=== PATIENT | female | born 1965 | race African-American/Black ===

== ENCOUNTER → 2017-03-18 | Outpatient (CLI) | payer OTHER ==
[~2017-03-18] MED LIST: ALBU6.7H INH; ASPI-110 PO; FLUC200T2 PO; FLUT1SPR9; IBUP800T23 PO; LEXA20TA PO; MULTTAB67 PO; NYST10007 TOPICAL; PRIL20TA2 PO
[2017-03-18 09:59] LABS: AUTOMATED NEUTROPHIL # 3.9 TH/MM3 (1.8-7.7); BASOPHIL # 0.1 TH/MM3 (0-0.2); BASOPHIL % 1.1 % (0.0-2.0); EOSINOPHIL # 0.2 TH/MM3 (0-0.4); EOSINOPHIL % 3.1 % (0.0-4.0); HEMATOCRIT 38.8 % (35.0-46.0); HEMO FLAGS DIFF FINAL; LYMPH % 31.1 % (9.0-44.0); LYMPHOCYTE # 2.3 TH/MM3 (1.0-4.8); MEAN CELL VOLUME 85.6 FL (80.0-100.0); MEAN CORPUSCULAR HGB CONC 32.7 % (32.0-36.0); MONO % 11.8 % (0.0-8.0); NEUT % 52.9 % (16.0-70.0); PLATELET COUNT 229 TH/MM3 (150-450); RED BLOOD COUNT 4.54 MIL/MM3 (4.00-5.30); RED CELL DISTRIBUTION WIDTH 14.8 % (11.6-17.2); WHITE BLOOD COUNT 7.3 TH/MM3 (4.0-11.0)
[2017-03-18 10:39] LABS: ALKALINE PHOSPHATASE 116 U/L (45-117); ALT (GPT) 15 U/L (10-53); ANION GAP 7 MEQ/L (5-15); AST (GOT) 10 U/L (15-37); BLOOD UREA NITROGEN 11 MG/DL (7-18); CHLORIDE 101 MEQ/L (98-107); GLOMERULAR FILTRATION RATE 97 ML/MIN (>89); GLUCOSE,FASTING 98 MG/DL (74-99); HDL CHOLESTEROL 51.4 MG/DL (40.0-60.0); LDL CHOLESTEROL 70 MG/DL (0-99); POTASSIUM 4.2 MEQ/L (3.5-5.1); SODIUM (NA) 139 MEQ/L (136-145); TOTAL BILIRUBIN ADULT 0.5 MG/DL (0.2-1.0)
[2017-03-18 10:56] LABS: HEMOGLOBIN A1a 0.8 %; HEMOGLOBIN A1b 0.6 %; HEMOGLOBIN F 0.8 %; HEMOGLOBIN LA1C 1.4 %; HEMOGLOBIN P3 2.4 %
== END ==
LOC: CLAB 09:31
PROVIDERS: ATTEND Family Medicine
DX: I10 Essential (primary) hypertension (principal); E78.5 Hyperlipidemia, unspecified; Z83.3 Family history of diabetes mellitus; Z68.35 Body mass index [BMI] 35.0-35.9, adult
CPT/HCPCS: 36415; 80053; 80061; 83036; 84443; 85025

== ENCOUNTER 2017-11-19 17:54 | Inpatient (IN) | payer OTHER ==
[~2017-11-19] VITALS: Ht 167.6 cm; Wt 103.3 kg
[~2017-11-19 17:54] MED LIST changes: -ASPI-110 PO; +ASPI1TAB57 PO; -FLUC200T2 PO; +GUAI100S5 PO; +IBUP1TAB7 PO; -IBUP800T23 PO; +IPRASOL INH; +LEVA750T9 PO; +NEBULIZER1 MI1
[2017-11-19 18:00] VITALS: BP 148/90; PULSE 94; RESP 24; TEMP 98.7; O2SAT 85
--- NOTE | 2017-11-19 18:14 | PD ---
HPI Chief Complaint: Respiratory Symptoms Time Seen by Provider: 18:09 Travel History International Travel<30 days: No Contact w/Intl Traveler<30days: No Traveled to known affect area: No History of Present Illness HPI 52-year-old female presents with cough and shortness of breath that started today. She last gave herself a breathing treatment at 1:00. She feels worse when she moves around. She denies other modifying factors. She denies any other concurrent complaints. PFSH Past Medical History Anxiety: Yes Depression: Yes Chest Pain: Yes Diminished Hearing: No GERD: Yes Respiratory: Yes Immunizations Current: No ?: Not LMP: 11/12/17 Tubal Ligation: Yes Past Surgical History Gynecologic Surgery: Yes (TUBAL LIGATION ) Joint Replacement: Yes (R KNEE LAPAROSCOPIC SX) Social History Alcohol Use: Yes (OCC.) Tobacco Use: No (QUIT 2 MONTH AGO) Substance Use: No Allergies-Medications (Allergen,Severity, Reaction): Coded Allergies: amoxicillin (Unverified Allergy, Severe, 11/19/17) clavulanic acid (Unverified Allergy, Severe, 11/19/17) Reported Meds & Prescriptions Reported Meds & Active Scripts Active Nebulizer 1 Mis Mis Ea .ROUTE DIRECTED Proventil Hfa 6.7 GM Inh (Albuterol Sulfate) 90 Mcg/Act Aer 2 Puff INH Q4-6H PRN Guaifenesin-Codeine Liq 100-10 Mg/5 Ml Soln 5 Ml PO Q6H PRN Lexapro (Escitalopram Oxalate) 20 Mg Tab 20 Mg PO DAILY Reported Multiple Vitamin 1 Tab 1 Tab PO DAILY Aspirin 81 (Aspirin) 81 Mg Tabdr 81 Mg PO DAILY Review of Systems Except as stated in HPI: all other systems reviewed are Neg Physical Exam Narrative GENERAL: Well-nourished, well-developed patient. SKIN: Warm and dry. HEAD: Normocephalic and atraumatic. EYES: No injection or drainage. ENT: No nasal drainage noted. NECK: Supple, trachea midline. CARDIOVASCULAR: Regular rate and rhythm RESPIRATORY: Decreased breath sounds bilaterally. No accessory muscle use. GASTROINTESTINAL: Abdomen soft, non-tender, nondistended. EXTREMITIES: No edema. NEUROLOGICAL: Awake and alert. Motor and sensory grossly within normal limits. Normal speech. Data Data Last Documented VS Vital Signs Date Time Temp Pulse Resp B/P (MAP) Pulse Ox O2 Delivery O2 Flow Rate FiO2 1/9/18 18:15 94 Nasal Cannula 11/19/17 18:00 98.7 94 24 148/90 (109) Orders Orders Complete Blood Count With Diff (11/19/17 18:09) Comprehensive Metabolic Panel (11/19/17 18:09) B-Type Natriuretic Peptide (11/19/17 18:09) Act Partial Throm Time (Ptt) (11/19/17 18:09) Prothrombin Time / Inr (Pt) (11/19/17 18:09) Magnesium (Mg) (11/19/17 18:09) Ckmb (Isoenzyme) Profile (11/19/17 18:09) Troponin I (11/19/17 18:09) Influenzae A/B Antigen (11/19/17 18:09) Blood Culture (11/19/17 18:09) Iv Access Insert/Monitor (11/19/17 18:09) Electrocardiogram (11/19/17 18:09) Ecg Monitoring (11/19/17 18:09) Oximetry (11/19/17 18:09) Oxygen Administration (11/19/17 18:09) Chest, Single Ap (11/19/17 18:09) Sodium Chloride 0.9% Flush (Ns Flush) (11/19/17 18:15) Methylprednisolone So Succ Inj (Solumedr (11/19/17 18:15) Albuterol-Ipratropium Neb (Duoneb Neb) (11/19/17 18:15) Labs Laboratory Tests Test 11/19/17 18:25 Prothrombin Time 9.9 SEC Prothromb Time International Ratio 1.0 RATIO Activated Partial Thromboplast Time 28.3 SEC Blood Urea Nitrogen 11 MG/DL Creatinine 1.01 MG/DL Random Glucose 90 MG/DL Albumin 4.1 GM/DL Calcium Level 8.8 MG/DL Magnesium Level 1.8 MG/DL Aspartate Amino Transf (AST/SGOT) 17 U/L Alanine Aminotransferase (ALT/SGPT) 18 U/L Sodium Level 136 MEQ/L Potassium Level 3.9 MEQ/L Chloride Level 100 MEQ/L Carbon Dioxide Level 30.3 MEQ/L Anion Gap 6 MEQ/L Estimat Glomerular Filtration Rate 70 ML/MIN MDM Medical Decision Making Medical Screen Exam Complete: Yes Emergency Medical Condition: Yes Medical Record Reviewed: Yes (past history confirmed) Differential Diagnosis Asthma exacerbation, pneumonia, pneumothorax, renal failure Narrative Course Will check blood work, chest x-ray, EKG, influenza and dose with Gene's, Solu- Medrol and reevaluate Physician Communication Physician Communication dr de los santos to follow and reevaluate Carmencita Marcial MD Nov 19, 2017 18:14
[2017-11-19] MEDS ORDERED: methylPREDNISolone SOD SUCC 125 MG/2 ML VIAL IV PUSH ONE (18:15)
[2017-11-19] MEDS ORDERED: SODIUM CHLORIDE 0.9% FLUSH 10 ML FLUSH IVF PRN (18:15)
[2017-11-19] MEDS: RESP: ALBUTEROL 2.5 MG/IPRATROPIUM 0.5 MG NEB (SCH) INH ×2 (18:23→18:24)
--- NOTE | 2017-11-19 18:35 | RADRPT ---
EXAM DATE/TIME: 11/19/2017 18:22 [facility] COMPARISON: No previous studies available for comparison. INDICATIONS : Shortness of breath and cough. MEDICAL HISTORY : Gastroesophageal reflux disease. Asthma. SURGICAL HISTORY : Tubal ligation. ENCOUNTER: Initial ACUITY: 1 day PAIN SCORE: 0/10 LOCATION: Bilateral chest FINDINGS: A single view of the chest demonstrates the lungs to be symmetrically aerated without evidence of mas s, infiltrate or effusion. The cardiomediastinal contours are unremarkable. Osseous structures are intact. CONCLUSION: No acute cardiopulmonary disease demonstrated. Darryn Calixto MD on November 19, 2017 at 18:32 Board Certified Radiologist. This report was verified electronically.
[2017-11-19 18:53] LABS: PROTHROMBIN TIME - PATIENT 9.9 SEC (9.8-11.6)
[2017-11-19 19:08] LABS: ALBUMIN 4.1 GM/DL (3.4-5.0); ALT (GPT) 18 U/L (10-53); AST (GOT) 17 U/L (15-37); BICARBONATE 30.3 MEQ/L (21.0-32.0); BLOOD UREA NITROGEN 11 MG/DL (7-18); CALCIUM 8.8 MG/DL (8.5-10.1); CHLORIDE 100 MEQ/L (98-107); CREATININE 1.01 MG/DL (0.50-1.00); GLOMERULAR FILTRATION RATE 70 ML/MIN (>89); GLUCOSE,RANDOM 90 MG/DL (74-106); MAGNESIUM 1.8 MG/DL (1.5-2.5); SODIUM (NA) 136 MEQ/L (136-145)
[2017-11-19 19:12] LABS: ALKALINE PHOSPHATASE 122 U/L (45-117); TOTAL BILIRUBIN ADULT 0.3 MG/DL (0.2-1.0); TOTAL PROTEIN 8.3 GM/DL (6.4-8.2); TROPONIN I LESS THAN 0.02 NG/ML (0.02-0.05)
[2017-11-19 19:16] VITALS: PULSE 95; RESP 20; O2SAT 90
[2017-11-19] MEDS ORDERED: RESP: ALBUTEROL 2.5 MG/3 ML NEB (SCH) NEB ONE (19:30)
[2017-11-19 19:57] VITALS: O2SAT 94
[2017-11-19] MEDS: MAGNESIUM SULFATE 1 GM PREMIX 100 ML IV SCH ×2 (19:57→21:06)
[2017-11-19 20:14] LABS: AUTOMATED NEUTROPHIL # 6.6 TH/MM3 (1.8-7.7); BASOPHIL # 0.1 TH/MM3 (0-0.2); EOSINOPHIL # 0.3 TH/MM3 (0-0.4); LYMPH % 15.9 % (9.0-44.0); LYMPHOCYTE # 1.4 TH/MM3 (1.0-4.8); MEAN CELL VOLUME 86.3 FL (80.0-100.0); MEAN CORPUSCULAR HEMOGLOBIN 29.6 PG (27.0-34.0); MEAN CORPUSCULAR HGB CONC 34.3 % (32.0-36.0); MEAN PLATELET VOLUME 8.8 FL (7.0-11.0); MONOCYTE # 0.3 TH/MM3 (0-0.9); NEUT % 76.1 % (16.0-70.0); PLATELET COUNT 213 TH/MM3 (150-450); RED BLOOD COUNT 4.05 MIL/MM3 (4.00-5.30); WHITE BLOOD COUNT 8.7 TH/MM3 (4.0-11.0)
--- NOTE | 2017-11-19 21:52 | PD ---
Physical Exam Narrative Patient signed out to me by Dr. Marcial. Please see her documentation for complete details. Briefly, patient is a 52-year-old female with history of asthma, who comes in complaining of shortness of breath. She was found to have an oxygen saturation of 85% in the waiting room. She says she has had cold symptoms for the past few days, with cough and congestion. She has not had any fever. 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 She has had multiple sick contacts. Exam shows decreased breath sounds throughout the lungs with occasional wheezing. Data Data Last Documented VS Vital Signs Date Time Temp Pulse Resp B/P (MAP) Pulse Ox O2 Delivery O2 Flow Rate FiO2 11/19/17 19:17 96 Nasal Cannula 2.00 11/19/17 19:16 95 20 11/19/17 18:00 98.7 Orders Orders Complete Blood Count With Diff (11/19/17 18:09) Comprehensive Metabolic Panel (11/19/17 18:09) B-Type Natriuretic Peptide (11/19/17 18:09) Act Partial Throm Time (Ptt) (11/19/17 18:09) Prothrombin Time / Inr (Pt) (11/19/17 18:09) Magnesium (Mg) (11/19/17 18:09) Ckmb (Isoenzyme) Profile (11/19/17 18:09) Troponin I (11/19/17 18:09) Influenzae A/B Antigen (11/19/17 18:09) Blood Culture (11/19/17 18:09) Iv Access Insert/Monitor (11/19/17 18:09) Electrocardiogram (11/19/17 18:09) Ecg Monitoring (11/19/17 18:09) Oximetry (11/19/17 18:09) Oxygen Administration (11/19/17 18:09) Chest, Single Ap (11/19/17 18:09) Sodium Chloride 0.9% Flush (Ns Flush) (11/19/17 18:15) Methylprednisolone So Succ Inj (Solumedr (11/19/17 18:15) Albuterol-Ipratropium Neb (Duoneb Neb) (11/19/17 18:15) CKMB (11/19/17 18:25) CKMB% (11/19/17 18:25) Magnesium Sulfate 1 Gm Premix (Magnesium (11/19/17 19:30) Albuterol Neb (Albuterol Neb) (11/19/17 19:30) Labs Laboratory Tests Test 11/19/17 18:25 11/19/17 19:50 Prothrombin Time 9.9 SEC Prothromb Time International Ratio 1.0 RATIO Activated Partial Thromboplast Time 28.3 SEC Blood Urea Nitrogen 11 MG/DL Creatinine 1.01 MG/DL Random Glucose 90 MG/DL Total Protein 8.3 GM/DL Albumin 4.1 GM/DL Calcium Level 8.8 MG/DL Magnesium Level 1.8 MG/DL Alkaline Phosphatase 122 U/L Aspartate Amino Transf (AST/SGOT) 17 U/L Alanine Aminotransferase (ALT/SGPT) 18 U/L Total Bilirubin 0.3 MG/DL Sodium Level 136 MEQ/L Potassium Level 3.9 MEQ/L Chloride Level 100 MEQ/L Carbon Dioxide Level 30.3 MEQ/L Anion Gap 6 MEQ/L Estimat Glomerular Filtration Rate 70 ML/MIN Total Creatine Kinase 161 U/L Creatine Kinase MB 2.9 NG/ML Troponin I LESS THAN 0.02 NG/ML B-Type Natriuretic Peptide 22 PG/ML White Blood Count 8.7 TH/MM3 Red Blood Count 4.05 MIL/MM3 Hemoglobin 12.0 GM/DL Hematocrit 35.0 % Mean Corpuscular Volume 86.3 FL Mean Corpuscular Hemoglobin 29.6 PG Mean Corpuscular Hemoglobin Concent 34.3 % Red Cell Distribution Width 15.0 % Platelet Count 213 TH/MM3 Mean Platelet Volume 8.8 FL Neutrophils (%) (Auto) 76.1 % Lymphocytes (%) (Auto) 15.9 % Monocytes (%) (Auto) 4.0 % Eosinophils (%) (Auto) 3.0 % Basophils (%) (Auto) 1.0 % Neutrophils # (Auto) 6.6 TH/MM3 Lymphocytes # (Auto) 1.4 TH/MM3 Monocytes # (Auto) 0.3 TH/MM3 Eosinophils # (Auto) 0.3 TH/MM3 Basophils # (Auto) 0.1 TH/MM3 CBC Comment DIFF FINAL Differential Comment [facility] Supervised Visit with FABIO: No Narrative Course Patient received 3 DuoNeb treatments as well as a dose of Solu-Medrol from Dr. Marcial. She still has a low oxygen saturation on room air and is not moving air well. Chest x-ray shows no acute abnormalities. Labs show no acute abnormalities. Given 2 g of magnesium and an additional albuterol treatment. Lung sounds improved, but room air oxygen saturation is still 90%. On oxygen, her saturation and skin the 95-98% range. Patient was placed in observation for management of asthma exacerbation with hypoxia and room air. Diagnosis Primary Impression: Asthma exacerbation Qualified Codes: J45.901 - Unspecified asthma with (acute) exacerbation Additional Impression: Hypoxia Admitting Information Admitting Physician Requests: Observation Kiarra Narvaez MD Nov 19, 2017 21:52
--- NOTE | 2017-11-19 22:38 | HHI.HP ---
[facility] Service Family Medicine Primary Care Physician Melissa Wells MD Admission Diagnosis Asthma exacerbation Diagnoses: International Travel<30 Days: No Contact w/Intl Traveler<30days: No Known Affected Area: No History of Present Illness Ms. Boggs is a 52-year-old female with a past medical history of asthma presenting to the ED for shortness of breath and cough. Patient states that over the last 3 days she has had coughing spells that have been been worsening. Initial symptoms were sinus congestion followed by postnasal drip with subsequent coughing. Denies wheezing, sputum production. She describes the coughing fits as persistent, having a spasm-like sensation where she is unable to catch her breath without the use of her albuterol inhaler. Other than the inhaler she has only been using cough drops. She does have a nebulizer machine at home and tried one treatment several days ago. 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 Due to this she came to the ER. Of note she has been working long hours and also has had extra stress at work due to a coworker recently losing their teenage son. No fevers, chills, no N/V, diarrhea , no CP. No new chemical irritants at home, does report hot flashes (related to menopause). Of note, she was diagnosed with bronchitis and treated with Levaquin as an outpatient at the end of August 2017. Symptoms improved at that time and she returned back at baseline before this most recent illness 3-4 days ago. Has known history of asthma in which she occasionally uses duo nebs and albuterol inhaler. She states that she'll go months at a time without using any type of breathing treatment, and usually only requires them when she is acutely ill. She states that she smoked one half pack per day for 5-6 years but quit 5 years ago. Review of Systems Constitutional: COMPLAINS OF: Fatigue, DENIES: Fever, Chills Ears, nose, mouth, throat: COMPLAINS OF: Running Nose, DENIES: Throat pain Respiratory: COMPLAINS OF: Cough, Shortness of breath, DENIES: Wheezing, Hemoptysis, Sputum production Cardiovascular: DENIES: Chest pain Gastrointestinal: DENIES: Abdominal pain, Black stools, Constipation, Diarrhea , Nausea, Vomiting Integumentary: DENIES: Rash Hematologic/lymphatic: DENIES: Lymphadenopathy Past Family Social History Past Medical History Asthma History of depression GERD Past Surgical History Laparoscopic R knee surgery for torn meniscus - 2014 Tubal ligation - 1989 Allergies: Coded Allergies: amoxicillin (Unverified Allergy, Severe, 11/19/17) clavulanic acid (Unverified Allergy, Severe, 11/19/17) Family History DM - mother and father Social History Lives with Has dog 1/2 ppd for 5-6 years, stopped 5 years ago Occasional alcohol use No illicit drug use PCP is Dr. Wells Physical Exam Vital Signs Vital Signs Date Time Temp Pulse Resp B/P (MAP) Pulse Ox O2 Delivery O2 Flow Rate FiO2 11/19/17 19:17 96 Nasal Cannula 2.00 11/19/17 19:16 95 20 90 Room Air 11/19/17 18:15 94 Nasal Cannula 11/19/17 18:00 98.7 94 24 148/90 (109) 85 Room Air Physical Exam GENERAL: This is a well-nourished, well-developed patient, in no apparent distress. Resting in bed comfortably with nasal cannula in place SKIN: No rashes, ecchymoses or lesions. Cool and dry. HEAD: Atraumatic. Normocephalic. No temporal or scalp tenderness. EYES: Pupils equal round and reactive. Extraocular motions intact. No scleral icterus. No injection or drainage. ENT: Nose without bleeding, purulent drainage or septal hematoma. Throat without erythema, tonsillar hypertrophy or exudate. Uvula midline. Airway patent. NECK: Trachea midline. No JVD or lymphadenopathy. Supple, nontender, no meningeal signs. CARDIOVASCULAR: Regular rate and rhythm without murmurs, gallops, or rubs. RESPIRATORY: Clear to auscultation. Breath sounds equal bilaterally but with decreased air movement throughout. No wheezes or crackles appreciated. GASTROINTESTINAL: Abdomen soft, non-tender, nondistended. No hepato-splenomegaly , or palpable masses. No guarding. MUSCULOSKELETAL: Extremities without clubbing, cyanosis, or edema. No joint tenderness, effusion, or edema noted. No calf tenderness. NEUROLOGICAL: Awake and alert. Cranial nerves II through XII intact. Motor and sensory grossly within normal limits. Five out of 5 muscle strength in all muscle groups. Normal speech. Laboratory Laboratory Tests Test 11/19/17 18:25 11/19/17 19:50 Prothrombin Time 9.9 Prothromb Time International Ratio 1.0 Activated Partial Thromboplast Time 28.3 Blood Urea Nitrogen 11 Creatinine 1.01 Random Glucose 90 Total Protein 8.3 Albumin 4.1 Calcium Level 8.8 Magnesium Level 1.8 Alkaline Phosphatase 122 Aspartate Amino Transf (AST/SGOT) 17 Alanine Aminotransferase (ALT/SGPT) 18 Total Bilirubin 0.3 Sodium Level 136 Potassium Level 3.9 Chloride Level 100 Carbon Dioxide Level 30.3 Anion Gap 6 Estimat Glomerular Filtration Rate 70 Total Creatine Kinase 161 Creatine Kinase MB 2.9 Troponin I LESS THAN 0.02 B-Type Natriuretic Peptide 22 White Blood Count 8.7 Red Blood Count 4.05 Hemoglobin 12.0 Hematocrit 35.0 Mean Corpuscular Volume 86.3 Mean Corpuscular Hemoglobin 29.6 Mean Corpuscular Hemoglobin Concent 34.3 Red Cell Distribution Width 15.0 Platelet Count 213 Mean Platelet Volume 8.8 Neutrophils (%) (Auto) 76.1 Lymphocytes (%) (Auto) 15.9 Monocytes (%) (Auto) 4.0 Eosinophils (%) (Auto) 3.0 Basophils (%) (Auto) 1.0 Neutrophils # (Auto) 6.6 Lymphocytes # (Auto) 1.4 Monocytes # (Auto) 0.3 Eosinophils # (Auto) 0.3 Basophils # (Auto) 0.1 CBC Comment DIFF FINAL Differential Comment Date/Time Source Procedure Growth Status 11/19/17 18:25 Blood Peripheral Aerobic Blood Culture Pending Received 11/19/17 18:25 Blood Peripheral Anaerobic Blood Culture Pending Received 11/19/17 18:52 Nasal Aspirate Influenza Types A,B Antigen (PATTI) - Final NEGATIVE FOR FLU A AND B ANTIGEN.... Complete Result Diagram: 11/19/17 1950 11/19/17 1825 Imaging Last 24 hours Impressions Chest X-Ray 11/19/17 1809 Signed Impressions: Service Date/Time: Sunday, November 19, 2017 18:22 - CONCLUSION: No acute cardiopulmonary disease demonstrated. MD Rainer Decker VTE Risk Assessment Rainer VTE Risk Assessment: No/Low Risk (score <= 1) Assessment and Plan Assessment and Plan 52-year-old female with a history of asthma presenting to the ED with shortness of breath and coughing episodes found to have increased oxygen demand. Chest x- ray negative, no leukocytosis and rapid influenza negative. Suspecting viral versus bacterial bronchitis versus asthma exacerbation. Patient much improved symptomatically following 3 DuoNeb treatments as well as Solu-Medrol and magnesium treatment, but is still requiring 2 L nasal cannula to sustain oxygen saturation. Will admit overnight for observation Code Status Full code Problem List: (1) Respiratory distress ICD Codes: R06.03 - Acute respiratory distress Plan: Presented to the ED with coughing/shortness of breath and found to be hypoxic with O2 saturation of 85% on room air. Currently requiring 2 L nasal cannula with an oxygen saturation 96% Chest x-ray negative No leukocytosis with WBC 8.7 Patient afebrile on admission with no reported fevers at home Rapid Influenza negative Blood cultures pending Respiratory panel pending Troponins negative 1, EKG showing sinus arrhythmia, CK-MB within normal limits , BNP within normal limits Treatment/Plan Differential includes viral versus bacterial bronchitis, asthma exacerbation, pneumonia Received 3 doses of DuoNeb's, 1 albuterol neb, 125 mg Solu-Medrol injection, and 2 bags of magnesium sulfate in the ED Patient reporting symptoms much improved after these treatments, but is still requiring oxygen Both bacterial bronchitis and bacterial pneumonia less suspicious as patient has been afebrile, no leukocytosis, negative chest x-ray Scheduling DuoNeb nebs every 4 hours when awake alternating with albuterol every 4 hours as needed Scheduling Singulair 5 mg nightly Starting prednisone 40 mg by mouth twice daily in the a.m. Protonix 20 mg by mouth daily for GI protection Fluticasone nasal spray twice a day Tessalon Perles as needed for cough Repeat CBC, BMP in the morning PA and lateral chest x-ray in the morning. May consider starting azithromycin if failure to improve (2) Asthma ICD Codes: J45.909 - Unspecified asthma, uncomplicated Plan: Known past medical history of asthma Treatment outlined above (3) FEN Plan: Regular diet Patient was ambulating, walking in the bathroom. Will not start DVT prophylaxis unless patient stays longer than 24 hours Electrolytes within normal limits, replete as needed Vidal Gonzalez MD R1 Nov 19, 2017 22:38
[2017-11-19] MEDS ORDERED: ONDANSETRON HCL 4 MG/2 ML VIAL IV PUSH PRN (23:15)
[2017-11-19] MEDS ORDERED: ACETAMINOPHEN 500 MG CPLT PO PRN (23:15)
[2017-11-19] MEDS ORDERED: ENALAPRILAT 1.25 MG/ML VIAL IV PUSH PRN (23:15)
[2017-11-19] MEDS ORDERED: SODIUM CHLORIDE 0.9% FLUSH 10 ML FLUSH IV FLUSH PRN (23:15)
[2017-11-19 23:22] VITALS: BP 157/81; PULSE 83; RESP 20; TEMP 98.1; O2SAT 97
[2017-11-19] MEDS: RESP: ALBUTEROL 2.5 MG/3 ML NEB (SCH) NEB (23:55)
[2017-11-20] VITALS (9 sets, daily range): BP systolic 133–170; BP diastolic 73–96; PULSE 78–102; RESP 14–20; TEMP 97.9–98.7; O2SAT 94–100
[2017-11-20] MEDS: MONTELUKAST SODIUM 10 MG TAB PO SCH ×2 (00:02→20:34)
[2017-11-20] MEDS: BENZONATATE 100 MG CAP PO PRN (00:02)
[2017-11-20] MEDS: RESP: ALBUTEROL 2.5 MG/IPRATROPIUM 0.5 MG NEB (SCH) NEB ×3 (03:22→19:56)
[2017-11-20 04:07] LABS: AUTOMATED NEUTROPHIL # 7.2 TH/MM3 (1.8-7.7); BASOPHIL # 0.1 TH/MM3 (0-0.2); BASOPHIL % 0.8 % (0.0-2.0); EOSINOPHIL % 0.1 % (0.0-4.0); HEMATOCRIT 38.6 % (35.0-46.0); HEMOGLOBIN 12.9 GM/DL (11.6-15.3); LYMPH % 9.9 % (9.0-44.0); LYMPHOCYTE # 0.8 TH/MM3 (1.0-4.8); MEAN CELL VOLUME 86.6 FL (80.0-100.0); MEAN CORPUSCULAR HEMOGLOBIN 28.8 PG (27.0-34.0); MEAN CORPUSCULAR HGB CONC 33.3 % (32.0-36.0); MONO % 0.7 % (0.0-8.0); MONOCYTE # 0.1 TH/MM3 (0-0.9); NEUT % 88.5 % (16.0-70.0); PLATELET COUNT 248 TH/MM3 (150-450); RED BLOOD COUNT 4.46 MIL/MM3 (4.00-5.30); RED CELL DISTRIBUTION WIDTH 15.4 % (11.6-17.2); WHITE BLOOD COUNT 8.2 TH/MM3 (4.0-11.0)
[2017-11-20 04:47] LABS: BICARBONATE 29.1 MEQ/L (21.0-32.0); CALCIUM 9.1 MG/DL (8.5-10.1); CREATININE 0.96 MG/DL (0.50-1.00)
[2017-11-20] MEDS: RESP: ALBUTEROL 2.5 MG/3 ML NEB (SCH) NEB ×2 (07:40→16:35)
[2017-11-20] MEDS ORDERED: methylPREDNISolone SOD SUCC 125 MG/2 ML VIAL IV PUSH ONE (09:00)
[2017-11-20] MEDS ORDERED: predniSONE 20 MG TAB PO SCH (09:00)
[2017-11-20] MEDS: MULTIVITAMIN TAB PO SCH (09:12)
[2017-11-20] MEDS: ESCITALOPRAM OXALATE 20 MG TAB PO SCH (09:13)
[2017-11-20] MEDS: ASPIRIN EC 81 MG TABEC PO SCH (09:13)
[2017-11-20] MEDS: SODIUM CHLORIDE 0.9% FLUSH 10 ML FLUSH IV FLUSH SCH ×2 (09:13→20:35)
[2017-11-20] MEDS: PANTOPRAZOLE SOD 20 MG DELAYED RELEASE TAB PO SCH (09:13)
--- NOTE | 2017-11-20 09:44 | HHI.HP ---
[facility] Service Family Medicine Primary Care Physician Melissa Wells MD Admission Diagnosis Asthma exacerbation Diagnoses: (1) Respiratory distress Diagnosis: Principal (2) Asthma Diagnosis: Principal (3) FEN International Travel<30 Days: No Contact w/Intl Traveler<30days: No Known Affected Area: No History of Present Illness Ms. Boggs is a 52-year-old female with a past medical history of asthma and allergies since she was a teenager presenting to the ED for shortness of breath and cough. Patient states that over the last 3 days she has had coughing spells that have been been worsening. Initial symptoms were sinus congestion followed by postnasal drip with subsequent coughing. Denies wheezing, sputum production. She describes the coughing fits as persistent, having a spasm-like sensation where she is unable to catch her breath without the use of her albuterol inhaler. Other than the inhaler she has only been using cough drops. She does have a nebulizer machine at home and tried one treatment several days ago. 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 Due to this she came to the ER. Of note she has been working long hours and also has had extra stress at work due to a coworker recently losing their teenage son. No fevers, chills, no N/V, diarrhea, no CP. No new chemical irritants at home, does report hot flashes (related to menopause). Of note, she was diagnosed with bronchitis and treated with Levaquin as an outpatient at the end of August 2017. Symptoms improved at that time and she returned back at baseline before this most recent illness 3-4 days ago. Has known history of asthma in which she occasionally uses duo nebs and albuterol inhaler. She states that she'll go months at a time without using any type of breathing treatment, and usually only requires them when she is acutely ill. She states that she smoked one half pack per day for 5-6 years but quit 5 years ago. She was admitted overnight and received solumedrol plus nebulizers and reports she feel 90% better today. She was comfortable sitting in bed and her O2 sats were upper 90s however, when she got up and walked around she was down into the mid 80s. She was only able to get less than 200 on her peak flow today. She should be in the 460 range if she was normal for her height and age. Review of Systems Other Constitutional: COMPLAINS OF: Fatigue, DENIES: Fever, Chills Ears, nose, mouth, throat: COMPLAINS OF: Running Nose, DENIES: Throat pain Respiratory: COMPLAINS OF: Cough, Shortness of breath, DENIES: Wheezing, Hemoptysis, Sputum production Cardiovascular: DENIES: Chest pain Gastrointestinal: DENIES: Abdominal pain, Black stools, Constipation, Diarrhea , Nausea, Vomiting Integumentary: DENIES: Rash Hematologic/lymphatic: DENIES: Lymphadenopathy Past Family Social History Past Medical History Asthma/allergies History of depression GERD Past Surgical History Laparoscopic R knee surgery for torn meniscus - 2014 Tubal ligation - 1989 Allergies: Coded Allergies: amoxicillin (Unverified Allergy, Severe, 11/19/17) clavulanic acid (Unverified Allergy, Severe, 11/19/17) Family History DM - mother and father history of asthma in her family Social History Lives with Has dog 1/2 ppd for 5-6 years, stopped 5 years ago Occasional alcohol use No illicit drug use PCP is Dr. Wells Physical Exam Vital Signs Vital Signs Date Time Temp Pulse Resp B/P (MAP) Pulse Ox O2 Delivery O2 Flow Rate FiO2 11/20/17 07:40 95 Nasal Cannula 3.00 11/20/17 03:53 98.2 102 20 170/73 (105) 96 11/19/17 23:22 98.1 83 20 157/81 (106) 97 11/19/17 19:57 94 Nasal Cannula 2.00 11/19/17 19:17 96 Nasal Cannula 2.00 11/19/17 19:16 95 20 90 Room Air 11/19/17 18:15 94 Nasal Cannula 11/19/17 18:00 98.7 94 24 148/90 (109) 85 Room Air Physical Exam GENERAL: This is a well-nourished, well-developed patient, in no apparent distress. Resting in bed comfortably with nasal cannula in place. does drop her O2 sats when up ambulating SKIN: No rashes, ecchymoses or lesions. Cool and dry. HEAD: Atraumatic. Normocephalic. EYES: Pupils equal round and reactive. Extraocular motions intact. No scleral icterus. No injection or drainage. ENT: Nose without bleeding, purulent drainage or septal hematoma. Airway patent. NECK: Trachea midline. No JVD or lymphadenopathy. Supple, nontender, no meningeal signs. CARDIOVASCULAR: Regular rate and rhythm without murmurs, gallops, or rubs. RESPIRATORY: Clear to auscultation. Breath sounds equal bilaterally but with decreased air movement throughout. No wheezes or crackles appreciated. when ambulating prolonged expiratory phase GASTROINTESTINAL: Abdomen soft, non-tender, nondistended. No hepato-splenomegaly , or palpable masses. No guarding. MUSCULOSKELETAL: Extremities without clubbing, cyanosis, or edema. No joint tenderness, effusion, or edema noted. No calf tenderness. NEUROLOGICAL: Awake and alert. Cranial nerves II through XII intact. Motor and sensory grossly within normal limits. Five out of 5 muscle strength in all muscle groups. Normal speech. Laboratory Laboratory Tests Test 11/19/17 18:25 11/19/17 19:50 11/20/17 03:30 Prothrombin Time 9.9 Prothromb Time International Ratio 1.0 Activated Partial Thromboplast Time 28.3 Blood Urea Nitrogen 11 12 Creatinine 1.01 0.96 Random Glucose 90 157 Total Protein 8.3 Albumin 4.1 Calcium Level 8.8 9.1 Magnesium Level 1.8 Alkaline Phosphatase 122 Aspartate Amino Transf (AST/SGOT) 17 Alanine Aminotransferase (ALT/SGPT) 18 Total Bilirubin 0.3 Sodium Level 136 138 Potassium Level 3.9 4.8 Chloride Level 100 101 Carbon Dioxide Level 30.3 29.1 Anion Gap 6 8 Estimat Glomerular Filtration Rate 70 74 Total Creatine Kinase 161 Creatine Kinase MB 2.9 Troponin I LESS THAN 0.02 B-Type Natriuretic Peptide 22 White Blood Count 8.7 8.2 Red Blood Count 4.05 4.46 Hemoglobin 12.0 12.9 Hematocrit 35.0 38.6 Mean Corpuscular Volume 86.3 86.6 Mean Corpuscular Hemoglobin 29.6 28.8 Mean Corpuscular Hemoglobin Concent 34.3 33.3 Red Cell Distribution Width 15.0 15.4 Platelet Count 213 248 Mean Platelet Volume 8.8 9.0 Neutrophils (%) (Auto) 76.1 88.5 Lymphocytes (%) (Auto) 15.9 9.9 Monocytes (%) (Auto) 4.0 0.7 Eosinophils (%) (Auto) 3.0 0.1 Basophils (%) (Auto) 1.0 0.8 Neutrophils # (Auto) 6.6 7.2 Lymphocytes # (Auto) 1.4 0.8 Monocytes # (Auto) 0.3 0.1 Eosinophils # (Auto) 0.3 0.0 Basophils # (Auto) 0.1 0.1 CBC Comment DIFF FINAL DIFF FINAL Differential Comment Date/Time Source Procedure Growth Status 11/19/17 18:25 Blood Peripheral Aerobic Blood Culture Pending Received 11/19/17 18:25 Blood Peripheral Anaerobic Blood Culture Pending Received 11/19/17 18:52 Nasal Aspirate Influenza Types A,B Antigen (PATTI) - Final NEGATIVE FOR FLU A AND B ANTIGEN.... Complete Result Diagram: 11/20/17 0330 11/20/17 0330 Imaging Last 24 hours Impressions Chest X-Ray 11/19/171808 Signed Impressions: Service Date/Time: Sunday, November 19, 2017 18:22 - CONCLUSION: No acute cardiopulmonary disease demonstrated. Darryn Calixto MD Caprini VTE Risk Assessment Caprini VTE Risk Assessment: No/Low Risk (score <= 1) Caprini Risk Assessment Model Point Value = 1 Point Value = 2 Point Value = 3 Point Value = 5 Age 41-60 Minor surgery BMI > 25 kg/m2 Swollen legs Varicose veins or History of unexplained or recurrent spontaneous Oral contraceptives or hormone replacement Sepsis (< 1 month) Serious lung disease, including pneumonia (< 1 month) Abnormal pulmonary function Acute myocardial infarction Congestive heart failure (< 1 month) History of inflammatory bowel disease Medical patient at bed rest Age 61-74 Arthroscopic surgery Major open surgery (> 45 min) Laparoscopic surgery (> 45 min) Malignancy Confined to bed (> 72 hours) Immobilizing plaster cast Central venous access Age >= 75 History of VTE Family history of VTE Factor V Leiden Prothrombin [id number] Lupus anticoagulant Anticardiolipin antibodies Elevated serum homocysteine Heparin-induced thrombocytopenia Other congenital or acquired thrombophilia Stroke (< 1 month) Elective arthroplasty Hip, pelvis, or leg fracture Acute spinal cord injury (< 1 month) Prophylaxis Regimen Total Risk Factor Score Risk Level Prophylaxis Regimen 0-1 Low Early ambulation 2 Moderate Order ONE of the following: *Sequential Compression Device (SCD) *Heparin 5000 units SQ BID 3-4 Higher Order ONE of the following medications: *Heparin 5000 units SQ TID *Enoxaparin/Lovenox 40 mg SQ daily (WT < 150 kg, CrCl > 30 mL/min) *Enoxaparin/Lovenox 30 mg SQ daily (WT < 150 kg, CrCl > 10-29 mL/min) *Enoxaparin/Lovenox 30 mg SQ BID (WT < 150 kg, CrCl > 30 mL/min) AND/OR *Sequential Compression Device (SCD) 5 or more Highest Order ONE of the following medications: *Heparin 5000 units SQ TID (Preferred with Epidurals) *Enoxaparin/Lovenox 40 mg SQ daily (WT < 150 kg, CrCl > 30 mL/min) *Enoxaparin/Lovenox 30 mg SQ daily (WT < 150 kg, CrCl > 10-29 mL/min) *Enoxaparin/Lovenox 30 mg SQ BID (WT < 150 kg, CrCl > 30 mL/min) AND *Sequential Compression Device (SCD) Assessment and Plan Assessment and Plan 52-year-old female with a history of asthma presenting to the ED with shortness of breath and coughing episodes found to have increased oxygen demand. Chest x- ray negative, no leukocytosis and rapid influenza negative. Suspecting viral versus bacterial bronchitis versus asthma exacerbation. Patient much improved symptomatically following 3 DuoNeb treatments as well as Solu-Medrol and magnesium treatment, but is still requiring 2 L nasal cannula to sustain oxygen saturation. today she is doing well on room air when sitting but needs oxygen on ambulation Problem List: (1) Respiratory distress ICD Codes: R06.03 - Acute respiratory distress Plan: Presented to the ED with coughing/shortness of breath and found to be hypoxic with O2 saturation of 85% on room air. now has good saturation on room air Chest x-ray negative No leukocytosis with WBC 8.7 Patient afebrile on admission with no reported fevers at home Rapid Influenza negative Blood cultures pending Respiratory panel pending Troponins negative 1, EKG showing sinus arrhythmia, CK-MB within normal limits , BNP within normal limits Treatment/Plan Differential includes viral versus bacterial bronchitis, asthma exacerbation, pneumonia Received 3 doses of DuoNeb's, 1 albuterol neb, 125 mg Solu-Medrol injection, and 2 bags of magnesium sulfate in the ED Patient reporting symptoms much improved after these treatments, but was still requiring oxygen Both bacterial bronchitis and bacterial pneumonia less suspicious as patient has been afebrile, no leukocytosis, negative chest x-ray Scheduling DuoNeb nebs every 4 hours when awake alternating with albuterol every 4 hours as needed Scheduling Singulair 5 mg nightly will keep on iv solumedrol Protonix 20 mg by mouth daily for GI protection Fluticasone nasal spray twice a day Tessalon Perles as needed for cough Repeated CBC, BMP in the morning PA and lateral chest x-ray in the morning. May consider starting azithromycin if failure to improve this is classic for asthma as she has a URI probably viral which led to this exacerbation. The intense bouts of coughing are typical for asthma as well. she is responding well to steroids and nebs at this point. her oxygen requirements are improved overnight. will recommend she stay in the hospital until she does not need oxygen. She is not in any respiratory distress. (2) Asthma ICD Codes: J45.909 - Unspecified asthma, uncomplicated Status: Acute Plan: Known past medical history of asthma/ allergies Treatment outlined above (3) FEN Plan: Regular diet Patient was ambulating, walking in the bathroom. Will not start DVT prophylaxis unless patient stays longer than 24 hours Electrolytes within normal limits, replete as needed Problem Qualifiers (1) Asthma: Qualified Codes: J45.901 - Unspecified asthma with (acute) exacerbation Nubia Ambrose MD Nov 20, 2017 09:44
[2017-11-20] MEDS: FLUTICASONE PROPIONATE 50 MCG/ACT 16 GM NASAL SPRAY NASAL SCH ×2 (10:55→20:35)
[2017-11-20] MEDS: guaiFENesin E.R. 600 MG TAB PO SCH ×2 (12:30→20:34)
[2017-11-20] MEDS ORDERED: ENOXAPARIN SODIUM 40 MG/0.4 ML SYRINGE SQ SCH (14:00)
[2017-11-20] MEDS: methylPREDNISolone SOD SUCC 40 MG/1 ML VIAL IV PUSH SCH (20:34)
--- NOTE | 2017-11-20 21:50 | EKG ---
Date Performed: 11/19/2017 Time Performed: 18:45:08 PTAGE: 52 years EKG: Sinus rhythm WITH MARKED SINUS ARRHYTHMIA BORDERLINE ECG PREVIOUS TRACING : 06/16/2011 15.36 Compared to prior tracing no significant change DOCTOR: Marty Monteiro Interpretating Date/Time 11/20/2017 21:49:46
[2017-11-21] VITALS (9 sets, daily range): BP systolic 120–136; BP diastolic 66–79; PULSE 74–110; RESP 16–18; TEMP 97.9–98.8; O2SAT 90–98
[2017-11-21] MEDS: RESP: ALBUTEROL 2.5 MG/3 ML NEB (SCH) NEB ×2 (00:14→08:46)
[2017-11-21] MEDS: methylPREDNISolone SOD SUCC 40 MG/1 ML VIAL IV PUSH SCH (04:05)
[2017-11-21] MEDS: RESP: ALBUTEROL 2.5 MG/IPRATROPIUM 0.5 MG NEB (SCH) NEB ×2 (04:21→12:00)
[2017-11-21 04:39] LABS: AUTOMATED NEUTROPHIL # 12.6 TH/MM3 (1.8-7.7); BASOPHIL % 0.2 % (0.0-2.0); HEMATOCRIT 38.5 % (35.0-46.0); HEMOGLOBIN 12.8 GM/DL (11.6-15.3); LYMPH % 9.1 % (9.0-44.0); LYMPHOCYTE # 1.3 TH/MM3 (1.0-4.8); MEAN CELL VOLUME 86.5 FL (80.0-100.0); MEAN CORPUSCULAR HEMOGLOBIN 28.8 PG (27.0-34.0); MEAN CORPUSCULAR HGB CONC 33.3 % (32.0-36.0); MEAN PLATELET VOLUME 8.9 FL (7.0-11.0); MONO % 4.6 % (0.0-8.0); MONOCYTE # 0.7 TH/MM3 (0-0.9); NEUT % 86.1 % (16.0-70.0); PLATELET COUNT 249 TH/MM3 (150-450); RED BLOOD COUNT 4.46 MIL/MM3 (4.00-5.30); RED CELL DISTRIBUTION WIDTH 15.8 % (11.6-17.2); WHITE BLOOD COUNT 14.6 TH/MM3 (4.0-11.0)
[2017-11-21 04:59] LABS: BICARBONATE 28.2 MEQ/L (21.0-32.0); CALCIUM 9.3 MG/DL (8.5-10.1); CREATININE 0.8 MG/DL (0.50-1.00)
[2017-11-21] MEDS ORDERED: methylPREDNISolone SOD SUCC 40 MG/1 ML VIAL IV PUSH SCH (08:00)
[2017-11-21] MEDS: FLUTICASONE PROPIONATE 50 MCG/ACT 16 GM NASAL SPRAY NASAL SCH (08:59)
[2017-11-21] MEDS: ESCITALOPRAM OXALATE 20 MG TAB PO SCH (09:00)
[2017-11-21] MEDS: ASPIRIN EC 81 MG TABEC PO SCH (09:00)
[2017-11-21] MEDS: guaiFENesin E.R. 600 MG TAB PO SCH (09:00)
[2017-11-21] MEDS: MULTIVITAMIN TAB PO SCH (09:00)
[2017-11-21] MEDS: SODIUM CHLORIDE 0.9% FLUSH 10 ML FLUSH IV FLUSH SCH (09:00)
[2017-11-21] MEDS: PANTOPRAZOLE SOD 20 MG DELAYED RELEASE TAB PO SCH (09:00)
--- NOTE | 2017-11-21 11:27 | HHI.DCPOC ---
Discharge Care Plan Diagnosis: (1) Asthma exacerbation Goals to Promote Your Health * To prevent worsening of your condition and complications * To maintain your health at the optimal level Directions to Meet Your Goals Take your medications as prescribed Follow your dietary instruction Follow activity as directed Keep your appointments as scheduled Take your immunizations and boosters as scheduled If your symptoms worsen call your PCP, if no PCP go to Urgent Care Center or Emergency Room Smoking is Dangerous to Your Health. Avoid second hand smoke Call the 24-hour hour crisis hotline for domestic abuse at Nicolasa Aj MD R2 Nov 21, 2017 11:27
[2017-11-21] MEDS ORDERED: predniSONE 50 MG TAB PO ONE (12:00)
[2017-11-21] MEDS ORDERED: predniSONE 20 MG TAB PO ONE (12:00)
[2017-11-21] MEDS ORDERED: BENZ100 PO (12:23)
[2017-11-21] MEDS ORDERED: MONT5CHW5 CHEW (12:23)
[2017-11-21] MEDS ORDERED: PRED20 PO (12:23)
[2017-11-21] MEDS ORDERED: PANT20 PO (12:23)
[2017-11-21] MEDS ORDERED: FLUTI110I INH (12:23)
[2017-11-21] MEDS ORDERED: FLUT50SP NASAL (12:23)
--- NOTE | 2017-11-21 12:24 | HHI.FPPN ---
Subjective Remarks Ms Boggs had no acute events overnight; however, she had trouble sleeping last night as she felt jittery and had palpitations she believes from the steroids she was given. Also, the special bed in her room changes shape automatically which freaked her out. She is feeling better this morning and able to perform an extensive walk test with pulse ox at low of 91%. Pt still has a milder cough and is moving air better. She denies CP, SOB, N/V/D, dizziness while ambulating , DVT pain. She is voiding and stooling and taking PO appropriately. (Delon Cuello MD R1) Objective Vitals Vital Signs Date Time Temp Pulse Resp B/P (MAP) Pulse Ox O2 Delivery O2 Flow Rate FiO2 11/21/17 12:00 74 11/21/17 10:30 2.00 11/21/17 10:00 74 11/21/17 08:00 97.9 110 16 120/79 (93) 90 11/21/17 08:00 74 11/21/17 07:00 98 Nasal Cannula 2.00 11/21/17 06:00 80 11/21/17 04:22 97 11/21/17 04:00 98.8 100 18 135/66 (89) 93 11/21/17 04:00 100 11/21/17 02:00 86 11/21/17 00:16 98 11/21/17 00:00 86 11/21/17 00:00 98.1 86 18 136/75 (95) 94 11/20/17 22:00 84 11/20/17 20:00 84 11/20/17 20:00 97.9 84 18 146/96 (113) 94 11/20/17 19:59 100 Nasal Cannula 2.00 11/20/17 19:00 94 Nasal Cannula 2.00 11/20/17 18:00 99 11/20/17 16:00 98.7 100 20 133/76 (95) 94 11/20/17 16:00 100 11/20/17 14:00 80 I/O 11/20/17 11/20/17 11/20/17 11/21/17 11/21/17 11/21/17 07:00 15:00 23:00 07:00 15:00 23:00 Intake Total 340 ml 800 ml 880 ml Balance 340 ml 800 ml 880 ml Intake Oral 340 ml 800 ml 880 ml IV Total 0 ml # Voids 3 5 8 # Bowel Movements 1 (Delon Cuello MD R1) Result Diagram: 11/21/1740211/21/17402 Imaging Last Impressions Chest X-Ray 11/19/171808 Signed Impressions: Service Date/Time: Sunday, November 19, 2017 18:22 - CONCLUSION: No acute cardiopulmonary disease demonstrated. Darryn Calixto MD Objective Remarks GENERAL: Well-nourished, well-developed patient in NAD sitting at edge of bed. SKIN: Warm and dry. No rash or lesions. Her skin color looks better today. HEAD: Normocephalic. Atraumatic. EYES: No scleral icterus. No injection or drainage. EOMI. NECK: Supple, trachea midline. No JVD or lymphadenopathy. CARDIOVASCULAR: Mildly tachycardic with regular rhythm without murmur, gallop, or rub. RESPIRATORY: Moving air bilaterally better than yesterday. Right upper lobe with distant breath sounds. No wheezing or crackles. No accessory muscle use. No increased WOB. GASTROINTESTINAL: Abdomen soft, non-tender, nondistended. Normal BS. EXTREMITIES: No cyanosis, or edema. Moves all spontaneously. NEUROLOGICAL: Awake, alert, and oriented x 3. Non-focal. Medications and IVs Current Medications Medications (Trade) Dose Ordered Sig/Niels Route Start Time Stop Time Status Last Admin (NS Flush) 2 ml BID IV FLUSH 11/20/17 09:00 11/21/17 09:00 (NS Flush) 2 ml UNSCH PRN IV FLUSH 11/19/17 23:15 (Albuterol Neb) 2.5 mg Q8HR NEB NEB 11/20/17 00:00 11/21/17 08:46 (Duoneb Neb) 1 ampule Q8HR ALT NEB NEB 11/20/17 04:00 11/21/17 04:21 (Ecotrin Ec) 81 mg DAILY PO 11/20/17 09:00 11/21/17 09:00 (Lexapro) 20 mg DAILY PO 11/20/17 09:00 11/21/17 09:00 (Theragran) 1 tab DAILY PO 11/20/17 09:00 11/21/17 09:00 (Protonix) 20 mg DAILY PO 11/20/17 09:00 11/21/17 09:00 (Tessalon) 100 mg TID PRN PO 11/19/17 23:15 11/20/17 00:02 (Vasotec Inj) 1.25 mg Q6H PRN IV PUSH 11/19/17 23:15 (Zofran Inj) 4 mg Q6HR PRN IV PUSH 11/19/17 23:15 (Tylenol) 500 mg Q6H PRN PO 11/19/17 23:15 (Singulair) 5 mg HS PO 11/19/17 23:15 11/20/17 20:34 (Flonase Tulio Spr) 1 spray BID NASAL 11/20/17 09:00 11/21/17 08:59 (Lovenox Inj) 40 mg Q24H SQ 11/20/17 14:00 11/20/17 14:00 (Mucinex Er) 600 mg BID PO 11/20/17 12:30 11/21/17 09:00 (Deltasone) 20 mg ONCE ONCE PO 11/21/17 12:00 11/21/17 12:01 UNV (Delon Cuello MD R1) Urinary Catheter: No (Delon Cuello MD R1) Vascular Central Line Catheter: No (Delon Cuello MD R1) A/P Assessment and Plan 52-year-old female with a history of allergies and asthma presenting to the ED with shortness of breath and coughing episodes found to have increased oxygen demand. Chest x-ray negative, no leukocytosis and rapid influenza negative. Suspecting viral versus bacterial bronchitis versus asthma exacerbation. Patient much improved symptomatically following 3 DuoNeb treatments as well as Solu-Medrol and magnesium treatment, but is still requiring 2 L nasal cannula to sustain oxygen saturation. Much improved since yesterday. Requring no supplemental O2 while sitting or ambulating. Moving air in lung martell better. Performed well enough on walk test to be discharged home. Seen and examined with Vik Ambrose and Jean Marie. Discharge Planning Will discharge today (Delon Cuello MD R1) Attending Attestation Patient seen and examined. Case reviewed and discussed with the resident team. Agree with plan of care as discussed with me and documented in the resident note. discussed with her multiple options in asthma treatment/prevention she has allergies and having allergy testing can help with avoidance. for some people allergy shots can do wonders not just for allergies but asthma as well we discussed that a steroid inhaler is a good idea but if people get very bad with their breathing oral steroids are often needed. encouraged her to discuss any concerns or questions with Dr Wells if people very rarely have any need for albuterol inhalers, some studies have shown that using a steroid inhaler at the same time as the albuterol can help and ultimately reduce overall steroid doses she is walking well without oxygen and very ready to go home and rest (Nubia Ambrose MD) Problem List: (1) Respiratory distress ICD Codes: R06.03 - Acute respiratory distress Plan: Presented to the ED with coughing/shortness of breath and found to be hypoxic with O2 saturation of 85% on room air. now has good saturation on room air Chest x-ray negative No leukocytosis with WBC 8.7 Patient afebrile on admission with no reported fevers at home Rapid Influenza negative Blood cultures pending Respiratory panel pending Troponins negative 1, EKG showing sinus arrhythmia, CK-MB within normal limits , BNP within normal limits Treatment/Plan Differential includes viral versus bacterial bronchitis, asthma exacerbation, pneumonia Received 3 doses of DuoNeb's, 1 albuterol neb, 125 mg Solu-Medrol injection, and 2 bags of magnesium sulfate in the ED Patient reporting symptoms much improved after these treatments, but was still requiring oxygen Both bacterial bronchitis and bacterial pneumonia less suspicious as patient has been afebrile, no leukocytosis, negative chest x-ray Scheduling DuoNeb nebs every 4 hours when awake alternating with albuterol every 4 hours as needed Scheduling Singulair 5 mg nightly will keep on iv solumedrol Protonix 20 mg by mouth daily for GI protection Fluticasone nasal spray twice a day Tessalon Perles as needed for cough Repeated CBC, BMP in the morning PA and lateral chest x-ray in the morning. May consider starting azithromycin if failure to improve this is classic for asthma as she has a URI probably viral which led to this exacerbation. The intense bouts of coughing are typical for asthma as well. she is responding well to steroids and nebs at this point. her oxygen requirements are improved overnight. will recommend she stay in the hospital until she does not need oxygen. She is not in any respiratory distress. 11/21: much improved as above. Passed walk test w/o requiring supplemental O2. Will discharge today -Prednisone taper -Albuterol -Flovent ICS -Singulair (2) Asthma ICD Codes: J45.909 - Unspecified asthma, uncomplicated Status: Acute Plan: Known past medical history of asthma/ allergies Treatment outlined above (3) FEN Plan: Regular diet Patient was ambulating, walking in the bathroom. Will not start DVT prophylaxis unless patient stays longer than 24 hours Electrolytes within normal limits, replete as needed (Delon Cuello MD R1) Problem Qualifiers (1) Asthma: Qualified Codes: J45.901 - Unspecified asthma with (acute) exacerbation Delon Cuello MD R1 Nov 21, 2017 12:24 Nubia Ambrose MD Nov 21, 2017 13:14
[2017-11-21] MEDS: BENZONATATE 100 MG CAP PO PRN (12:59)
--- NOTE | 2017-11-21 17:43 | HHI.DS ---
Discharge Summary Admission Date Nov 20, 2017 at 13:05 Discharge Date: Nov 21, 2017 Admitting Diagnosis Asthma exacerbation (1) Respiratory distress Diagnosis: Principal ICD Codes: R06.03 - Acute respiratory distress (2) Asthma Diagnosis: Secondary ICD Codes: J45.909 - Unspecified asthma, uncomplicated Status: Acute Brief History Ms. Boggs is a 52-year-old female with a past medical history of asthma and allergies since she was a teenager presenting to the ED for shortness of breath and cough. Patient states that over the last 3 days she has had coughing spells that have been been worsening. Initial symptoms were sinus congestion followed by postnasal drip with subsequent coughing. Denies wheezing, sputum production. She describes the coughing fits as persistent, having a spasm-like sensation where she is unable to catch her breath without the use of her albuterol inhaler. Other than the inhaler she has only been using cough drops. She does have a nebulizer machine at home and tried one treatment several days ago. 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 Due to this she came to the ER. Of note she has been working long hours and also has had extra stress at work due to a coworker recently losing their teenage son. No fevers, chills, no N/V, diarrhea, no CP. No new chemical irritants at home, does report hot flashes (related to menopause). Of note, she was diagnosed with bronchitis and treated with Levaquin as an outpatient at the end of August 2017. Symptoms improved at that time and she returned back at baseline before this most recent illness 3-4 days ago. Has known history of asthma in which she occasionally uses duo nebs and albuterol inhaler. She states that she'll go months at a time without using any type of breathing treatment, and usually only requires them when she is acutely ill. She states that she smoked one half pack per day for 5-6 years but quit 5 years ago. She was admitted overnight and received solumedrol plus nebulizers and reports she feel 90% better today. She was comfortable sitting in bed and her O2 sats were upper 90s however, when she got up and walked around she was down into the mid 80s. She was only able to get less than 200 on her peak flow today. She should be in the 460 range if she was normal for her height and age. CBC/BMP: 11/21/17 0403 11/21/17 0403 Significant Findings Laboratory Tests Test 11/19/17 18:25 11/19/17 19:50 11/20/17 03:30 11/20/17 13:53 Creatinine 1.01 MG/DL (0.50-1.00) Total Protein 8.3 GM/DL (6.4-8.2) Alkaline Phosphatase 122 U/L (45-117) Estimat Glomerular Filtration Rate 70 ML/MIN (>89) 74 ML/MIN (>89) Troponin I LESS THAN 0.02 NG/ML Neutrophils (%) (Auto) 76.1 % (16.0-70.0) 88.5 % (16.0-70.0) Lymphocytes # (Auto) 0.8 TH/MM3 (1.0-4.8) Random Glucose 157 MG/DL (74-106) Test 11/20/17 17:00 11/21/17 04:03 Venous Blood pH 7.45 (7.360-7.400) Venous Blood Partial Pressure CO2 40 mmHg (44-48) Venous Blood Partial Pressure O2 32 mmHg (35-40) Venous Blood HCO3 27 mmol/L (22-26) Venous Blood Oxygen Saturation 56 % (70-76) Venous Blood Base Excess 3.6 mmol/L (-2-2) White Blood Count 14.6 TH/MM3 (4.0-11.0) Neutrophils (%) (Auto) 86.1 % (16.0-70.0) Neutrophils # (Auto) 12.6 TH/MM3 (1.8-7.7) Random Glucose 152 MG/DL (74-106) PE at Discharge GENERAL: Well-nourished, well-developed patient in NAD sitting at edge of bed. SKIN: Warm and dry. No rash or lesions. Her skin color looks better today. HEAD: Normocephalic. Atraumatic. EYES: No scleral icterus. No injection or drainage. EOMI. NECK: Supple, trachea midline. No JVD or lymphadenopathy. CARDIOVASCULAR: Mildly tachycardic with regular rhythm without murmur, gallop, or rub. RESPIRATORY: Moving air bilaterally better than yesterday. Right upper lobe with distant breath sounds. No wheezing or crackles. No accessory muscle use. No increased WOB. GASTROINTESTINAL: Abdomen soft, non-tender, nondistended. Normal BS. EXTREMITIES: No cyanosis, or edema. Moves all spontaneously. NEUROLOGICAL: Awake, alert, and oriented x 3. Non-focal. Hospital Course Patient presented to the [facility] ED with a chief complaint of shortness of breath and was found to be hypoxic at 85% on room air. She was immediately treated with multiple doses of DuoNebs, IV steroids, and IV magnesium sulfate in the ED with marked improvement in her respiratory status although she continued to desaturate down to 84% with ambulation. She continued to improve during her hospital stay and was able to move air much better. She also had improvement in the coughing that she was experiencing. Today, her oxygen saturation improved significantly and did not drop below 91% with ambulation. She was deemed stable for discharge home with new prescriptions for Flovent inhaler, Singulair, Flonase and a short course of oral steroids. Notably, she was not treated with antibiotics during this admission. Pt Condition on Discharge: Good Discharge Disposition: Discharge Home Discharge Instructions DIET: Follow Instructions for: As Tolerated, No Restrictions Activities you can perform: Regular-No Restrictions Follow up Referrals: PCP Follow-up - 1 Week with Melissa Wells MD New Medications: Fluticasone 12 GM Inh (Flovent Hfa 12 GM Inh) 110 Mcg/Act Inh 1 PUFF INH BID for Asthma Management, #1 INHALER 0 Refills Montelukast (Montelukast) 5 Mg Chew 5 MG CHEW HS, #30 TAB 0 Refills Prednisone (Prednisone) 20 Mg Tab 20 MG PO DIRECTED for Inflammation, #5 TAB 0 Refills Begin on 11/22/17: 40 MG once a day x 1 day, then 20 MG daily x 2 days, then 10 MG daily x 2 days Benzonatate (Tessalon Perles) 100 Mg Cap 100 MG PO TID PRN for cough, #15 CAP Fluticasone Nasal [place] (Fluticasone Nasal [place]) 50 Mcg/Act Naspr 1 SPRAY NASAL BID, #1 BOTTLE 0 Refills 50 mcg/spray Pantoprazole (Protonix) 20 Mg Tab 20 MG PO DAILY, #5 TAB Continued Medications: Albuterol 6.7 GM Inh (Proventil Hfa 6.7 GM Inh) 90 Mcg/Act Aer 2 PUFF INH Q4-6H PRN for SHORTNESS OF BREATH, #1 INHALER [address] (Aspirin 81) 81 Mg Tabdr 81 MG PO DAILY, TAB 0 Refills Escitalopram (Lexapro) 20 Mg Tab 20 MG PO DAILY, #90 TAB 12 Refills Guaifenesin-Codeine Liq (Guaifenesin-Codeine Liq) 100-10 Mg/5 Ml Soln 5 ML PO Q6H PRN for COUGH, #1 BOTTLE 0 Refills Ipratropium-Albuterol Neb (Duoneb) 0.5-2.5 Mg/3 Ml Neb 1 NEBULE INH Q4HR NEB for Breathing Treatment, #180 NEBULE 0 Refills Multiple Vitamin (Multiple Vitamin) 1 Tab 1 TAB PO DAILY for Nutritional Supplement, TAB 0 Refills Nebulizer (Nebulizer) 1 Mis Mis EA .ROUTE DIRECTED for Breathing Treatment, #1 0 Refills Nicolasa Aj MD R2 Nov 21, 2017 17:43
== END 2017-11-21 13:55 | disposition home or self-care (01) | DRG 203 ==
LOC: NEPC 17:54 → NEDA 22:15 → N03A 11-20 09:24 → OBSVTOIN 11-20 13:05
PROVIDERS: ADMIT Family Medicine; ATTEND Family Medicine
PROC: 3E0F7GC Introduction of Other Therapeutic Substance into Respiratory Tract, Via Natural or Artificial Opening (ICD-10-PCS; principal; 2017-11-19)
DX: J45.901 Unspecified asthma with (acute) exacerbation (principal); F32.9 Major depressive disorder, single episode, unspecified; R06.03 Acute respiratory distress; F41.9 Anxiety disorder, unspecified; K21.9 Gastro-esophageal reflux disease without esophagitis; Z87.891 Personal history of nicotine dependence; R09.02 Hypoxemia; R09.82 Postnasal drip; Z82.5 Family history of asthma and other chronic lower respiratory diseases; Z83.3 Family history of diabetes mellitus
CPT/HCPCS: 71045; 80048; 80053; 82550; 82552; 82805; 83735; 83880; 84484; 85025; 85379; 85610; 85730; 87040; 87070; 87081; 87205; 87449; 87804; 87880; 93005; 94618; 94640; 94664; 94799; 96374; G0378; J1650; J2920; J2930; J3475; J7512; J7613

== ENCOUNTER 2018-02-15 22:25 | Observation (INO) | payer OTHER ==
[~2018-02-15] VITALS: Ht 170.2 cm; Wt 93.0 kg
[~2018-02-15 22:25] MED LIST changes: +BENZ100 PO; -FLUT1SPR9; +FLUT50SP NASAL; +FLUTI110I INH; -IBUP1TAB7 PO; -LEVA750T9 PO; +MONT5CHW5 CHEW; -NYST10007 TOPICAL; +PANT20 PO; +PRED20 PO; -PRIL20TA2 PO
[2018-02-15 22:46] VITALS: BP 182/87; PULSE 122; RESP 32; O2SAT 72
[2018-02-15 22:48] VITALS: O2SAT 98
[2018-02-15 23:00] VITALS: BP 163/72; PULSE 104; RESP 28; O2SAT 100
[2018-02-15] MEDS ORDERED: SODIUM CHLORIDE 0.9% FLUSH 10 ML FLUSH IVF PRN (23:00)
[2018-02-15] MEDS ORDERED: methylPREDNISolone SOD SUCC 125 MG/2 ML VIAL IV PUSH ONE (23:00)
[2018-02-15] MEDS: RESP: ALBUTEROL 2.5 MG/IPRATROPIUM 0.5 MG NEB (SCH) INH ×3 (23:01→23:03)
[2018-02-15 23:05] VITALS: O2SAT 100
[2018-02-15 23:12] LABS: AUTOMATED NEUTROPHIL # 7.7 TH/MM3 (1.8-7.7); BASOPHIL # 0.1 TH/MM3 (0-0.2); BASOPHIL % 1.1 % (0.0-2.0); EOSINOPHIL # 1.2 TH/MM3 (0-0.4); EOSINOPHIL % 8.8 % (0.0-4.0); HEMATOCRIT 39.2 % (35.0-46.0); LYMPH % 21.8 % (9.0-44.0); LYMPHOCYTE # 2.9 TH/MM3 (1.0-4.8); MEAN CELL VOLUME 85.4 FL (80.0-100.0); MEAN CORPUSCULAR HEMOGLOBIN 28.4 PG (27.0-34.0); MEAN CORPUSCULAR HGB CONC 33.2 % (32.0-36.0); MEAN PLATELET VOLUME 9.1 FL (7.0-11.0); MONO % 9.4 % (0.0-8.0); MONOCYTE # 1.2 TH/MM3 (0-0.9); NEUT % 58.9 % (16.0-70.0); PLATELET COUNT 243 TH/MM3 (150-450); RED BLOOD COUNT 4.59 MIL/MM3 (4.00-5.30); RED CELL DISTRIBUTION WIDTH 15.2 % (11.6-17.2); WHITE BLOOD COUNT 13.1 TH/MM3 (4.0-11.0)
--- NOTE | 2018-02-15 23:20 | RADRPT ---
EXAM DATE/TIME: 02/15/2018 22:59 [facility] COMPARISON: CHEST SINGLE AP, November 19, 2017, 18:22. INDICATIONS : Shortness of breath. MEDICAL HISTORY : Gastroesophageal reflux disease. Asthma SURGICAL HISTORY : Tubal ligation. ENCOUNTER: Initial ACUITY: 1 day PAIN SCORE: 0/10 LOCATION: Bilateral chest FINDINGS: Single AP view of the chest. The lungs are clear. Cardiomediastinal silhouette within normal limits. No evidence of pleural effusion or pneumothorax. CONCLUSION: No acute cardiopulmonary disease identified. Bienvenido Boggs MD on February 15, 2018 at 23:16 Board Certified Radiologist. This report was verified electronically.
[2018-02-15 23:26] LABS: PROTHROMBIN TIME - PATIENT 10.5 SEC (9.8-11.6)
[2018-02-15 23:27] LABS: ALT (GPT) 15 U/L (10-53); AST (GOT) 13 U/L (15-37); BICARBONATE 30.2 MEQ/L (21.0-32.0); BLOOD UREA NITROGEN 9 MG/DL (7-18); CHLORIDE 104 MEQ/L (98-107); CREATININE 0.77 MG/DL (0.50-1.00); GLOMERULAR FILTRATION RATE 96 ML/MIN (>89); GLUCOSE,RANDOM 130 MG/DL (74-106); SODIUM (NA) 141 MEQ/L (136-145)
[2018-02-15 23:31] LABS: ALKALINE PHOSPHATASE 125 U/L (45-117); TOTAL BILIRUBIN ADULT 0.6 MG/DL (0.2-1.0); TOTAL PROTEIN 8.2 GM/DL (6.4-8.2); TROPONIN I LESS THAN 0.02 NG/ML (0.02-0.05)
[2018-02-16] VITALS (9 sets, daily range): BP systolic 114–137; BP diastolic 58–80; PULSE 86–99; RESP 18–26; TEMP 97.7–98.8; O2SAT 91–97
[2018-02-16] MEDS ORDERED: RESP: ALBUTEROL 2.5 MG/3 ML NEB (SCH) NEB ONE (01:00)
[2018-02-16] MEDS: MAGNESIUM SULFATE 1 GM PREMIX 100 ML IV SCH ×2 (01:01)
--- NOTE | 2018-02-16 03:13 | PD ---
HPI Chief Complaint: Respiratory Distress Time Seen by Provider: 22:48 Travel History International Travel<30 days: No Contact w/Intl Traveler<30days: No Traveled to known affect area: No History of Present Illness HPI Patient is a 52 year old female who comes in complaining of SOB. She has history of asthma. She says it has been bothering her for the past week, but got worse today. She denies chest pain. She denies fever or chills. She denies leg swelling or pain. She has been using albuterol at home without relief. Severity is moderate. PFSH Past Medical History Arthritis: Yes (r knee) Asthma: Yes Blood Disorders: No Anxiety: Yes Depression: Yes Heart Rhythm Problems: No Cancer: No Cardiovascular Problems: No High Cholesterol: No Chest Pain: Yes (years ago) Congestive Heart Failure: No COPD: No Diabetes: No Diminished Hearing: No Endocrine: No Gastrointestinal Disorders: Yes (GERD) GERD: Yes Genitourinary: No Immune Disorder: No Musculoskeletal: Yes (R KNEE TORN MENISCUS) Neurologic: No Psychiatric: Yes Reproductive: No (TUBAL LIGATION) Respiratory: Yes Immunizations Current: No Sleep Apnea: No Thyroid Disease: No Tetanus Vaccination: Unknown Influenza Vaccination: Yes ?: Not Tubal Ligation: Yes Past Surgical History Gynecologic Surgery: Yes (TUBAL LIGATION ) Joint Replacement: Yes (R KNEE LAPAROSCOPIC SX) Oral Surgery: Yes (teeth extraction) Social History Alcohol Use: Yes (OCC.) Tobacco Use: No (QUIT 2 MONTH AGO) Substance Use: Yes Allergies-Medications (Allergen,Severity, Reaction): Coded Allergies: amoxicillin (Unverified Allergy, Severe, 02/15/18) clavulanic acid (Unverified Allergy, Severe, 02/15/18) Reported Meds & Prescriptions Reported Meds & Active Scripts Active Flovent Hfa 12 GM Inh (Fluticasone Propionate) 110 Mcg/Act Inh 1 Puff INH BID Protonix (Pantoprazole Sodium) 20 Mg Tab 20 Mg PO DAILY Fluticasone Nasal [place] 50 Mcg/Act Naspr 1 [place] NASAL BID 50 mcg/spray Montelukast (Montelukast Sodium) 5 Mg Chew 5 Mg CHEW HS Tessalon Perles (Benzonatate) 100 Mg Cap 100 Mg PO TID PRN Nebulizer 1 Mis Mis Ea .ROUTE DIRECTED Duoneb (Ipratropium-Albuterol Neb) 0.5-2.5 Mg/3 Ml Neb 1 Nebule INH Q4HR NEB Proventil Hfa 6.7 GM Inh (Albuterol Sulfate) 90 Mcg/Act Aer 2 Puff INH Q4-6H PRN Guaifenesin-Codeine Liq 100-10 Mg/5 Ml Soln 5 Ml PO Q6H PRN Lexapro (Escitalopram Oxalate) 20 Mg Tab 20 Mg PO DAILY Reported Multiple Vitamin 1 Tab 1 Tab PO DAILY Aspirin 81 (Aspirin) 81 Mg Tabdr 81 Mg PO DAILY Review of Systems Except as stated in HPI: all other systems reviewed are Neg General / Constitutional: No: Fever, Chills HENT: No: Headaches, Lightheadedness Cardiovascular: No: Chest Pain or Discomfort Respiratory: Positive: Cough, Shortness of Breath Gastrointestinal: No: Nausea, Vomiting Musculoskeletal: No: Myalgias, Arthralgias Skin: No Rash, No Change in Pigmentation Neurologic: No: Weakness, Dizziness Physical Exam Narrative GENERAL: Awake and alert, in mild respiratory distress. SKIN: Focused skin assessment warm/dry. HEAD: Atraumatic. Normocephalic. EYES: Pupils equal and round. No scleral icterus. EOMI. ENT: Mucous membranes pink and moist. NECK: Trachea midline. No JVD. CARDIOVASCULAR: Regular rate and rhythm. No murmur appreciated. RESPIRATORY: Tachypnea, very little air movement. Occasional wheezes heard. GASTROINTESTINAL: Abdomen soft, non-tender, nondistended. MUSCULOSKELETAL: No obvious deformities. No clubbing. No cyanosis. No edema. NEUROLOGICAL: Awake and alert. No obvious cranial nerve deficits. Motor grossly within normal limits. Normal speech. PSYCHIATRIC: Appropriate mood and affect; insight and judgment normal. Data Data Last Documented VS Vital Signs Date Time Temp Pulse Resp B/P (MAP) Pulse Ox O2 Delivery O2 Flow Rate FiO2 02/16/18 00:45 91 Nasal Cannula 6.00 02/16/18 00:00 96 26 Orders Orders Complete Blood Count With Diff (02/15/18 22:48) Comprehensive Metabolic Panel (02/15/18 22:48) B-Type Natriuretic Peptide (02/15/18 22:48) Act Partial Throm Time (Ptt) (02/15/18 22:48) Prothrombin Time / Inr (Pt) (02/15/18 22:48) Troponin I (02/15/18 22:48) Iv Access Insert/Monitor (02/15/18 22:48) Electrocardiogram (02/15/18 22:48) Ecg Monitoring (02/15/18 22:48) Oximetry (02/15/18 22:48) Oxygen Administration (02/15/18 22:48) Chest, Single Ap (02/15/18 22:48) Sodium Chloride 0.9% Flush (Ns Flush) (02/15/18 23:00) Methylprednisolone So Succ Inj (Solumedr (02/15/18 23:00) Albuterol-Ipratropium Neb (Duoneb Neb) (02/15/18 23:00) Magnesium Sulfate 1 Gm Premix (Magnesium (02/15/18 23:45) Albuterol Neb (Albuterol Neb) (02/16/18 01:00) Labs Laboratory Tests Test 02/15/18 22:50 White Blood Count 13.1 TH/MM3 Red Blood Count 4.59 MIL/MM3 Hemoglobin 13.0 GM/DL Hematocrit 39.2 % Mean Corpuscular Volume 85.4 FL Mean Corpuscular Hemoglobin 28.4 PG Mean Corpuscular Hemoglobin Concent 33.2 % Red Cell Distribution Width 15.2 % Platelet Count 243 TH/MM3 Mean Platelet Volume 9.1 FL Neutrophils (%) (Auto) 58.9 % Lymphocytes (%) (Auto) 21.8 % Monocytes (%) (Auto) 9.4 % Eosinophils (%) (Auto) 8.8 % Basophils (%) (Auto) 1.1 % Neutrophils # (Auto) 7.7 TH/MM3 Lymphocytes # (Auto) 2.9 TH/MM3 Monocytes # (Auto) 1.2 TH/MM3 Eosinophils # (Auto) 1.2 TH/MM3 Basophils # (Auto) 0.1 TH/MM3 CBC Comment DIFF FINAL Differential Comment Prothrombin Time 10.5 SEC Prothromb Time International Ratio 1.0 RATIO Activated Partial Thromboplast Time 29.9 SEC Blood Urea Nitrogen 9 MG/DL Creatinine 0.77 MG/DL Random Glucose 130 MG/DL Total Protein 8.2 GM/DL Albumin 4.0 GM/DL Calcium Level 9.0 MG/DL Alkaline Phosphatase 125 U/L Aspartate Amino Transf (AST/SGOT) 13 U/L Alanine Aminotransferase (ALT/SGPT) 15 U/L Total Bilirubin 0.6 MG/DL Sodium Level 141 MEQ/L Potassium Level 4.0 MEQ/L Chloride Level 104 MEQ/L Carbon Dioxide Level 30.2 MEQ/L Anion Gap 7 MEQ/L Estimat Glomerular Filtration Rate 96 ML/MIN Troponin I LESS THAN 0.02 NG/ML B-Type Natriuretic Peptide 9 PG/ML MDM Medical Decision Making Medical Screen Exam Complete: Yes Emergency Medical Condition: Yes Medical Record Reviewed: Yes Interpretation(s) ECG shows sinus tachycardia at a rate of 104. Differential Diagnosis asthma exacerbation vs pneumonia vs URI Narrative Course Patient is a 52-year-old female comes in complaining of shortness of breath. Exam shows tachypnea with decreased breath sounds and occasional wheezes. IV established, labs sent. Labs show no acute abnormalities other than an elevation in white blood cell count of 13.1. Chest x-ray performed shows no acute abnormalities. Last 24 hours Impressions Chest X-Ray 02/15/18 0698 Signed Impressions: Service Date/Time: Thursday, February 15, 2018 22:59 - CONCLUSION: No acute cardiopulmonary disease identified. Bienvenido Boggs MD Patient given 3 DuoNeb's. Oxygen saturation was in the 70s on arrival. She is currently maintaining a saturation of 90-92% on 6 L via nasal cannula. Given Solu-Medrol as well as magnesium. Given an additional albuterol treatment. She does report feeling better, but she continues to wheeze and have an oxygen saturation requiring supplemental oxygen. She will be placed in observation for further management. Diagnosis Primary Impression: Asthma Qualified Codes: J45.901 - Unspecified asthma with (acute) exacerbation Admitting Information Admitting Physician Requests: Observation Kiarra Narvaez MD Feb 16, 2018 03:13
[2018-02-16] MEDS ORDERED: RESP: ALBUTEROL 2.5 MG/3 ML NEB (PRN) NEB (03:30)
--- NOTE | 2018-02-16 03:35 | HHI.HP ---
[facility] Service Family Medicine Primary Care Physician Melissa Wells MD Admission Diagnosis asthma exacerbation Diagnoses: International Travel<30 Days: No Contact w/Intl Traveler<30days: No Known Affected Area: No History of Present Illness Ms. Boggs is a 52-year-old female with a past medical history of asthma presenting to the ED for SOB, wheezing. 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 Started wheezing (02/13) after someone walked by her with heavy perfume. Experienced nasal congestion, wheezing that required her rescue inhaler. She began and she used rescue inhaler - experienced nasal congestion at that time. On 02/14 she began having a nonproductive cough. On 02/15 she held a baby shower at [place] for her daughter. She was active during the event and felt progressively more SOB - requiring a rescue inhaler. After going home she used a breathing treatment and her symptoms improved some but continued to be SOB. This prompted her to come to ED. This is her 2nd asthma exacerbation since childhood. Of note she was admitted in November of 2017 for the 1st exacerbation. She was discharged on Singulair and Flovent BID, but she has been out of both for 1 month. She had not required her rescue inhaler since discharge until this week. No other symptoms of illness, no fevers, chills. Going through menopause so has night sweats. 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 (Vidal Gonzalez MD R1) Review of Systems Constitutional: DENIES: Fever, Chills Ears, nose, mouth, throat: DENIES: Throat pain, Running Nose Respiratory: COMPLAINS OF: Cough, Wheezing, Shortness of breath Cardiovascular: DENIES: Chest pain Gastrointestinal: DENIES: Abdominal pain, Black stools, Bloody stools, Constipation, Diarrhea, Nausea, Vomiting Genitourinary: DENIES: Hematuria, Dysuria Musculoskeletal: DENIES: Joint Swelling Integumentary: DENIES: Rash Hematologic/lymphatic: DENIES: Lymphadenopathy Neurologic: DENIES: Headache Psychiatric: DENIES: Confusion (Vidal Gonzalez MD R1) Past Family Social History Past Medical History Asthma History of depression GERD Past Surgical History Laparoscopic R knee surgery for torn meniscus - 2014 Tubal ligation - 1989 (Vidal Gonzalez MD R1) Allergies: Coded Allergies: amoxicillin (Unverified Allergy, Severe, 02/15/18) clavulanic acid (Unverified Allergy, Severe, 02/15/18) Family History DM - mother and father Social History Lives with Has dog 1/2 ppd for 5-6 years, stopped 5 years ago Occasional alcohol use No illicit drug use PCP is Dr. Wells (Vidal Gonzalez MD R1) Physical Exam Vital Signs Vital Signs Date Time Temp Pulse Resp B/P (MAP) Pulse Ox O2 Delivery O2 Flow Rate FiO2 02/16/18 00:45 91 Nasal Cannula 6.00 02/16/18 00:00 96 26 137/74 (95) 94 Nasal Cannula 4.00 02/15/18 23:05 100 Nasal Cannula 6.00 02/15/18 23:00 104 28 163/72 (102) 100 Non-Rebreather 15.00 02/15/18 22:52 100 Non-Rebreather 15.00 02/15/18 22:48 98 Non-Rebreather 15.00 02/15/18 22:46 122 32 182/87 (118) 72 Physical Exam GENERAL: This is a well-nourished, well-developed patient, in no apparent distress. NC in place and able to speak in full sentences SKIN: No rashes, ecchymoses or lesions. Cool and dry. HEAD: Atraumatic. Normocephalic. No temporal or scalp tenderness. EYES: Pupils equal round and reactive. Extraocular motions intact. No scleral icterus. No injection or drainage. ENT: Nose without bleeding, purulent drainage or septal hematoma. Throat without erythema, tonsillar hypertrophy or exudate. Uvula midline. Airway patent. NECK: Trachea midline. No JVD or lymphadenopathy. Supple, nontender, no meningeal signs. CARDIOVASCULAR: Regular rate and rhythm without murmurs, gallops, or rubs. RESPIRATORY: Clear to auscultation. Breath sounds equal bilaterally. Occasional expiratory wheeze appreciated in the R lung base. GASTROINTESTINAL: Abdomen soft, non-tender, nondistended. No hepato-splenomegaly , or palpable masses. No guarding. MUSCULOSKELETAL: Extremities without clubbing, cyanosis, or edema. No joint tenderness, effusion, or edema noted. No calf tenderness. Negative Homans sign bilaterally. NEUROLOGICAL: Awake and alert. Cranial nerves II through XII intact. Motor and sensory grossly within normal limits. Five out of 5 muscle strength in all muscle groups. Normal speech. Laboratory Laboratory Tests Test 02/15/18 22:50 White Blood Count 13.1 Red Blood Count 4.59 Hemoglobin 13.0 Hematocrit 39.2 Mean Corpuscular Volume 85.4 Mean Corpuscular Hemoglobin 28.4 Mean Corpuscular Hemoglobin Concent 33.2 Red Cell Distribution Width 15.2 Platelet Count 243 Mean Platelet Volume 9.1 Neutrophils (%) (Auto) 58.9 Lymphocytes (%) (Auto) 21.8 Monocytes (%) (Auto) 9.4 Eosinophils (%) (Auto) 8.8 Basophils (%) (Auto) 1.1 Neutrophils # (Auto) 7.7 Lymphocytes # (Auto) 2.9 Monocytes # (Auto) 1.2 Eosinophils # (Auto) 1.2 Basophils # (Auto) 0.1 CBC Comment DIFF FINAL Differential Comment Prothrombin Time 10.5 Prothromb Time International Ratio 1.0 Activated Partial Thromboplast Time 29.9 Blood Urea Nitrogen 9 Creatinine 0.77 Random Glucose 130 Total Protein 8.2 Albumin 4.0 Calcium Level 9.0 Alkaline Phosphatase 125 Aspartate Amino Transf (AST/SGOT) 13 Alanine Aminotransferase (ALT/SGPT) 15 Total Bilirubin 0.6 Sodium Level 141 Potassium Level 4.0 Chloride Level 104 Carbon Dioxide Level 30.2 Anion Gap 7 Estimat Glomerular Filtration Rate 96 Troponin I LESS THAN 0.02 B-Type Natriuretic Peptide 9 (Vidal Gonzalez MD R1) Result Diagram: 02/15/18 2250 02/15/18 2250 Imaging Last 24 hours Impressions Chest X-Ray 02/15/18 2248 Signed Impressions: Service Date/Time: Thursday, February 15, 2018 22:59 - CONCLUSION: No acute cardiopulmonary disease identified. Bienvenido Boggs MD (Vidal Gonzalez MD R1) Caprini VTE Risk Assessment Caprini VTE Risk Assessment: No/Low Risk (score <= 1) (Vidal Gonzalez MD R1) Assessment and Plan Assessment and Plan 52 yo F with PMH of asthma, depression presented to ED with SOB/wheezing consistent with asthma exacerbation. CXR negative on admission. O2 saturation was 72% on RA on presentation, has improved to 91% on 6L NC after 3 doses of Duonebs, 1 dose of albuterol. Solumedrol 125mg IV x1 and 2 doses of Magnesium. Admitting to observation for further management. Code Status Full code Discussed Condition With Dr. Cárdenas (Vidal Gonzalez MD R1) Attending Attestation Patient seen and examined. Case reviewed and discussed with the resident team. Agree with plan of care as discussed with me and documented in the resident note. discussed with her that albuterol alone was not the best treatment for severe asthma. recommended steroid inhalers like flovent. discussed never using her albuterol inhaler more often than every 4 hours at home without getting help and getting started on steroids and seeing a Dr. discussed, seeing continuous conveyor screen drier as her allergies are getting worse and are likely contributing to this problem. she knows that asthma can kill if it is not well controlled and is willing as well to see a oil well services supervisor and get PFTs as an outpt. (Nubia Ambrose MD) Problem List: (1) Asthma exacerbation ICD Codes: J45.901 - Unspecified asthma with (acute) exacerbation Status: Acute Plan: Presented to the ED with coughing/shortness of breath and found to be hypoxic with O2 saturation of 72% on room air. Currently requiring 6 L nasal cannula with an oxygen saturation 91% Chest x-ray negative Mild leukocytosis with WBC 13.1 - eosinophil, monocyte shift No reported fevers at home, afebrile on admission Troponins negative 1, BNP WNL Treatment/Plan Received 3 doses of DuoNeb's, 1 albuterol neb, 125 mg Solu-Medrol injection, and 2 bags of magnesium sulfate in the ED Patient reporting symptoms much improved after these treatments, but is still requiring oxygen Both bacterial bronchitis and bacterial pneumonia less suspicious as patient has been afebrile, negative chest x-ray Scheduling DuoNeb nebs every 4 hours when awake alternating with albuterol every 2 hours as needed Scheduling Singulair 5 mg nightly Scheduling methylprednisolone 60 mg IV q8hr Protonix 40 mg by mouth daily for GI protection Fluticasone nasal spray twice a day Tessalon Perles as needed for cough Follow up CBC, CRP, BMP, VBG in AM Respiratory peak flow rate pending (2) History of depression ICD Codes: Z86.59 - Personal history of other mental and behavioral disorders Plan: Continue home Lexapro (3) FEN Plan: No IVF Electrolytes WNL Regular diet Holding DVT prophylaxis for now as patient may not require 24 hour stay (Vidal Gonzalez MD R1) Problem List: (1) Asthma exacerbation ICD Codes: J45.901 - Unspecified asthma with (acute) exacerbation Status: Acute Plan: Presented to the ED with coughing/shortness of breath and found to be hypoxic with O2 saturation of 72% on room air. Currently requiring 6 L nasal cannula with an oxygen saturation 91% Chest x-ray negative Mild leukocytosis with WBC 13.1 - eosinophil, monocyte shift No reported fevers at home, afebrile on admission Troponins negative 1, BNP WNL Treatment/Plan Received 3 doses of DuoNeb's, 1 albuterol neb, 125 mg Solu-Medrol injection, and 2 bags of magnesium sulfate in the ED Patient reporting symptoms much improved after these treatments, but is still requiring oxygen Both bacterial bronchitis and bacterial pneumonia less suspicious as patient has been afebrile, negative chest x-ray Scheduling DuoNeb nebs every 4 hours when awake alternating with albuterol every 2 hours as needed Scheduling Singulair 5 mg nightly Scheduling methylprednisolone 60 mg IV q8hr Protonix 40 mg by mouth daily for GI protection Fluticasone nasal spray twice a day Tessalon Perles as needed for cough Follow up CBC, CRP, BMP, VBG in AM Respiratory peak flow rate pending (2) History of depression ICD Codes: Z86.59 - Personal history of other mental and behavioral disorders Plan: Continue home Lexapro (3) FEN Plan: No IVF Electrolytes WNL Regular diet Holding DVT prophylaxis for now as patient may not require 24 hour stay (Nubia Ambrose MD) Problem Qualifiers (1) Asthma exacerbation: Qualified Codes: J45.901 - Unspecified asthma with (acute) exacerbation Vidal Gonzalez MD R1 Feb 16, 2018 03:35 Nubia Ambrose MD Feb 16, 2018 12:37
[2018-02-16] MEDS ORDERED: BENZONATATE 100 MG CAP PO PRN (03:45)
[2018-02-16] MEDS ORDERED: SODIUM CHLORIDE FLUSH PRN IV FLUSH (04:15)
[2018-02-16] MEDS: RESP: ALBUTEROL 2.5 MG/IPRATROPIUM 0.5 MG NEB (SCH) NEB ×4 (04:30→16:27)
[2018-02-16] MEDS ORDERED: methylPREDNISolone SOD SUCC 125 MG/2 ML VIAL IV PUSH SCH (05:00)
[2018-02-16] MEDS: methylPREDNISolone SOD SUCC 125 MG/2 ML VIAL IV PUSH SCH ×2 (07:14→14:23)
[2018-02-16] MEDS ORDERED: SODIUM CHLORIDE FLUSH BID IV FLUSH SCH (09:00)
[2018-02-16] MEDS ORDERED: ESCITALOPRAM OXALATE 20 MG TAB PO SCH (09:00)
[2018-02-16] MEDS ORDERED: ASPIRIN EC 81 MG TABEC PO SCH (09:00)
[2018-02-16] MEDS ORDERED: FLUTICASONE PROPIONATE 50 MCG/ACT 16 GM NASAL SPRAY NASAL SCH (09:00)
[2018-02-16] MEDS ORDERED: PANTOPRAZOLE SOD 40 MG DELAYED RELEASE TAB PO SCH ×2 (09:00)
[2018-02-16] MEDS ORDERED: FLUTICASONE PROPIONATE 110 MCG/ACT 12 GM INHALER INH SCH (09:00)
[2018-02-16 09:54] LABS: AUTOMATED NEUTROPHIL # 6.5 TH/MM3 (1.8-7.7); BASOPHIL % 0.5 % (0.0-2.0); EOSINOPHIL % 0.3 % (0.0-4.0); HEMATOCRIT 38.1 % (35.0-46.0); LYMPH % 9.8 % (9.0-44.0); LYMPHOCYTE # 0.7 TH/MM3 (1.0-4.8); MEAN CORPUSCULAR HEMOGLOBIN 29.2 PG (27.0-34.0); MEAN PLATELET VOLUME 9.1 FL (7.0-11.0); MONO % 0.5 % (0.0-8.0); NEUT % 88.9 % (16.0-70.0); PLATELET COUNT 241 TH/MM3 (150-450); RED BLOOD COUNT 4.44 MIL/MM3 (4.00-5.30); RED CELL DISTRIBUTION WIDTH 15.5 % (11.6-17.2); WHITE BLOOD COUNT 7.3 TH/MM3 (4.0-11.0)
[2018-02-16] MEDS ORDERED: RESP: ACETYLCYSTEINE 10% 10 ML NEB NEB PRN (10:00)
[2018-02-16 10:15] LABS: BICARBONATE 28.3 MEQ/L (21.0-32.0); C-REACTIVE PROTEIN 1.3 MG/DL (0.00-0.30); CALCIUM 9.1 MG/DL (8.5-10.1); CREATININE 0.85 MG/DL (0.50-1.00)
[2018-02-16] MEDS ORDERED: RESP: ACETYLCYSTEINE 10% 30 ML NEB NEB PRN (11:30)
--- NOTE | 2018-02-16 17:05 | EKG ---
Date Performed: 02/15/2018 Time Performed: 22:56:51 PTAGE: 52 years EKG: SINUS TACHYCARDIA Compared to previous tracing, sinus arrhythmia has resolved ABNORMAL RHYT HM ECG PREVIOUS TRACING : 11/19/17 @ 1845 DOCTOR: Bryan Guo Interpretating Date/Time 02/16/2018 17:05:22
[2018-02-16] MEDS ORDERED: FLUTICASONE 100 MCG/VILANTEROL 25 MCG INHALER INH SCH (18:00)
--- NOTE | 2018-02-16 18:22 | MB ---
cc: Jose Castillo MD DATE: 02/16/2018 REQUESTING PHYSICIAN: Carlos Drake MD REASON FOR CONSULTATION: Bronchial asthma. HISTORY OF PRESENT ILLNESS: Ms. 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. She has a history of asthma as a child and she outgrew it, but she is having symptoms since October. She was using only albuterol inhaler. Over the last few days, she was not feeling well. She was at [employer]. She was exposed to a lot of fumes and then she started having worsening of shortness of breath and wheezing. She does admit to postnasal drip and heartburn. Does not have any fever or chills, no night sweats. She was seen in the emergency room. She was given IV steroids, feels significantly better. LABORATORY AND DIAGNOSTIC DATA: She had a workup done. Her CBC showed WBC count 7.3, hemoglobin 13, hematocrit 38.1, MCV 86, platelet count 241. Sodium 136, potassium 4.2, chloride 101, CO2 of 28, BUN 9, creatinine 0.85, glucose 154. Blood gas: PH 7.34, pCO2 of 53, pO2 of 58 on 7 L nasal cannula. Now, she is weaned down to room air. Her chest x-ray shows no acute cardiopulmonary process. PAST MEDICAL HISTORY: Significant with history of hypertension, bronchial asthma, postnasal drip, GERD, knee arthroscopy. MEDICATIONS: She is currently taking Singulair 5 mg a day, Mucomyst nebulizer treatment, aspirin 81 mg a day, Lexapro 20 mg a day, Flovent 200 mcg 1 puff twice a day, Protonix 40 mg a day, Solu-Medrol 60 mg q. 8 hours, albuterol, Atrovent nebulizer treatment. ALLERGIES: SHE IS ALLERGIC TO AMOXICILLIN AND CLAVULANIC ACID. 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 History of smoking, which she quit quite some time ago. No alcohol. FAMILY HISTORY She has 3 daughters. REVIEW OF SYSTEMS: Normally, she is up, around and actually feels stressed out and is on Lexapro after her brother's . PHYSICAL EXAMINATION: GENERAL: WBWN,female, mild short of breath, not in acute distress. VITAL SIGNS: Her blood pressure 114/58, heart rate 99, respirations 18, temperature 98.1. HEENT: Pupils are equal and reactive to light. Oral mucosa and nasal mucosa normal. NECK: Supple. CHEST: She has end-expiratory rhonchi. CARDIOVASCULAR: S1, S2 normal. ABDOMEN: Soft, nondistended. Bowel sounds are present. EXTREMITIES: No edema. IMPRESSION: 1. Bronchial asthma exacerbation. 2. Rhinitis and postnasal drip. 3. Gastroesophageal reflux disease. 4. Anxiety. PLAN: I will start her on Symbicort 160/4.5 two puffs twice a day. I discussed with her that she needs to stay on the maintenance therapy and gave her Singulair 10 mg a day. Advised her to avoid heavy spicy meals and take Protonix once a day. Once she gets better, we will check a pulmonary function study. Further treatment will depend on the course in the hospital. Thank you, Dr. Vidal Gonzalez, for this consult. MD DIANELYS Francis/SB , 05:56 PM , 06:22 PM RAULITO
[2018-02-16] MEDS ORDERED: PANT20 PO (19:01)
[2018-02-16] MEDS ORDERED: PRED20 PO (19:01)
[2018-02-16] MEDS ORDERED: ALBU6.7H INH (19:01)
[2018-02-16] MEDS ORDERED: BENZ100 PO (19:01)
[2018-02-16] MEDS ORDERED: FLUT50SP NASAL (19:01)
[2018-02-16] MEDS ORDERED: IPRASOL INH (19:01)
[2018-02-16] MEDS ORDERED: MONT10TA4 PO (19:01)
--- NOTE | 2018-02-16 19:02 | HHI.DCPOC ---
Discharge Care Plan Diagnosis: (1) Asthma exacerbation Goals to Promote Your Health * To prevent worsening of your condition and complications * To maintain your health at the optimal level Directions to Meet Your Goals Take your medications as prescribed Follow your dietary instruction Follow activity as directed Keep your appointments as scheduled Take your immunizations and boosters as scheduled If your symptoms worsen call your PCP, if no PCP go to Urgent Care Center or Emergency Room Smoking is Dangerous to Your Health. Avoid second hand smoke Call the 24-hour hour crisis hotline for domestic abuse at Nicolasa Aj MD R2 Feb 16, 2018 19:02
[2018-02-16] MEDS ORDERED: Fluticason-Vilanter 100-25 Inh INH ×2 (19:24→19:25)
[2018-02-16] MEDS ORDERED: MONTELUKAST SODIUM 5 MG CHEWABLE TAB CHEW SCH ×2 (21:00)
== END 2018-02-16 21:27 | disposition home or self-care (01) ==
LOC: NEPC 22:25 → NEDA 02-16 03:14 → NEPFCDU 02-16 05:21
PROVIDERS: ADMIT Family Medicine; ATTEND Family Medicine
DX: J45.901 Unspecified asthma with (acute) exacerbation (principal); K21.9 Gastro-esophageal reflux disease without esophagitis; R12 Heartburn; R09.82 Postnasal drip; F41.9 Anxiety disorder, unspecified; Z87.891 Personal history of nicotine dependence; Z79.899 Other long term (current) drug therapy
CPT/HCPCS: 71045; 80048; 80053; 82805; 83880; 84484; 85025; 85610; 85730; 86140; 93005; 94640; 94664; 94799; 96365; 96375; 96376; 99285; G0378; J2930; J3475; J7608; J7613

== ENCOUNTER → 2018-02-27 | Outpatient (CLI) | payer OTHER ==
[~2018-02-27] MED LIST changes: -FLUTI110I INH; +Fluticason-Vilanter 100-25 Inh INH; -GUAI100S5 PO; +MONT10TA4 PO; -MONT5CHW5 CHEW
--- NOTE | 2018-03-05 09:58 | RSPPFT ---
DATE OF PROCEDURE: 02/27/18 COMMENTS: Spirometry shows FVC of 2.0 at 59% of predicted, FEV1 of 1.1 at 30%, FEV1/FVC ratio is decreased. Flow is decreased at FEF 25, FEF 50, FEF 75 and FEF 25-75. There is no response after acutely inhaled bronchodilator treatment. Lung volumes show residual volume is normal. TLC is normal. Diffusion capacity is decreased. Flow volume loop indicates an obstructive pattern. Room air arterial blood gases show pH of 7.40, PCO2 of 46, PO2 of 59, BiCarb of 28 and Saturation at 84%. IMPRESSION: 1. Moderately severe obstructive lung disease. 2. No response after bronchodilator treatment. 3. Lung volumes are normal. 4. Decreased diffusion capacity. 5. Blood gases show hypoxia on room air.
== END ==
LOC: HRSP 07:42
PROVIDERS: ATTEND Family Medicine
DX: J45.901 Unspecified asthma with (acute) exacerbation (principal)
CPT/HCPCS: 36600; 82805; 94060; 94726; 94729